=== PATIENT | female | born 1940 | race Caucasian/White ===

== ENCOUNTER → 2019-06-16 | Outpatient (CLI) | payer MEDICARE, OTHER ==
--- NOTE | 2019-06-16 11:25 | Diagnostic Imaging Report ---
INDICATION: Preop for spinal cord stimulator placement. TIME OF EXAM: 11:05 AM No prior studies are available for comparison. FINDINGS: The heart size is normal. The pulmonary vascularity is unremarkable. The lungs are clear. No infiltrate, effusion or pneumothorax is detected. IMPRESSION: No acute cardiopulmonary process is detected. Dictated by: Dictated on workstation # [id number]
[2019-06-16 12:03] LABS: CLARITY,URINE SL CLOUDY; COLOR,URINE DARK YELLOW
[2019-06-16 12:04] LABS: BACTERIA,URINE FEW /HPF; BILIRUBIN,URINE 1+ (NEGATIVE); GLUCOSE, URINE (UA) NEGATIVE (NEGATIVE); KETONES,URINE NEGATIVE (NEGATIVE); LEUKOCYTE ESTERASE ,URINE NEGATIVE (NEGATIVE); NITRITE,URINE NEGATIVE (NEGATIVE); PH,URINE 5.5 (5-9); PROTEIN,URINE 1+ (NEGATIVE); UROBILINOGEN,URINE 0.2 MG/DL (NORMAL)
[2019-06-16 12:05] LABS: AMORPHOUS SEDIMENT,UR FEW AMOR URATES /LPF; HYALINE CASTS, URINE >50 /LPF; SQUAMOUS EPITHELIAL CELL,UR 25-50 /HPF
[2019-06-16 12:06] LABS: CALCIUM OXALATE CRYSTALS,UR MODERATE /LPF
[2019-06-17 09:32] LABS: PROTHROMBIN TIME PATIENT 13.1 SEC (12.2-14.7)
== END ==
LOC: RAD FS 10:47
DX: Z01.818 Encounter for other preprocedural examination (principal); Z01.83 Encounter for blood typing; M79.609 Pain in unspecified limb; R53.83 Other fatigue; Z22.322 Carrier or suspected carrier of Methicillin resistant Staphylococcus aureus
CPT/HCPCS: 36415; 71046; 81000; 85610; 87077; 87081; 87088

== ENCOUNTER → 2019-08-04 | Outpatient (CLI) | payer MEDICARE, OTHER ==
--- NOTE | 2019-08-04 13:47 | Diagnostic Imaging Report ---
INDICATION: Pain status post fall. COMPARISON: None. FINDINGS: Frontal and lateral radiographic views of the lumbar spine were obtained. Evaluation of static alignment demonstrates mild grade 1 anterolisthesis at L4-L5. There is also mild dextroscoliotic deformity epicentered at L3. There is no evidence of jumped facets. Vertebral body heights are maintained. There is no evidence of acute fracture. There are moderate multilevel degenerative changes consistent with intervertebral disc height loss with endplate sclerosis as well as anterior and posterior disc osteophyte complex formations and multilevel facet arthropathy. IMPRESSION: 1. No acute fracture or dislocation in lumbar spine. 2. Moderate multilevel degenerative changes. Dictated by: Dictated on workstation # [id number]
--- NOTE | 2019-08-04 13:48 | Diagnostic Imaging Report ---
INDICATION: Rib pain status post fall. COMPARISON: None. FINDINGS: Four views of the left ribs were obtained. There is no fracture, dislocation, or other acute bony abnormality identified. Visualized portions of the left lung are clear. The surrounding soft tissues appear unremarkable. No radiopaque foreign bodies are seen. IMPRESSION: No healing or displaced left-sided rib fractures. Dictated by: Dictated on workstation # [id number]
--- NOTE | 2019-08-04 14:30 | Diagnostic Imaging Report ---
EXAMINATION: Thoracic spine at 11:58 a.m. INDICATION: Back pain. TECHNIQUE: AP, lateral, and swimmer's views were obtained. COMPARISON: There are no prior studies available for comparison. FINDINGS: The lateral view shows the vertebral body heights and alignment to be generally within normal limits. There is generalized narrowing of the disc spaces at every level. There is no fracture or acute bony abnormality appreciated. There is no sign of a paraspinal mass. IMPRESSION: 1. There is no evidence for an acute bony abnormality. 2. If clinical concern regarding an underlying abnormality persists, then MRI would be recommended for further evaluation. Dictated by: Dictated on workstation # [id number]
== END ==
LOC: RAD FS 11:24
PROVIDERS: ATTEND Nurse Practitioner
DX: M47.816 Spondylosis without myelopathy or radiculopathy, lumbar region (principal); R07.81 Pleurodynia; R29.6 Repeated falls
CPT/HCPCS: 71100; 72072; 72100

== ENCOUNTER 2019-10-27 12:04 | Emergency (ER) | payer MEDICARE, OTHER ==
[~2019-10-27] VITALS: Ht 162 cm; Wt 97.0 kg
--- NOTE | 2019-10-27 12:40 | ED Syncope ---
General Chief Complaint: General Problems/Pain Stated Complaint: SYNCOPE Nursing Triage Note: PT REPORTS SHE FELT LIKE SHE GOING TO PASS OUT AT HOME. DENIES BEING DIZZY. History of Present Illness Date Seen by Provider: Oct 27, 2019 Time Seen by Provider: 12:20 Initial Comments Patient is here with a near syncope episode at home evidently ate breakfast was doing her normal things became more and more dizzy at morning when on and not as much dizzy as lightheaded and unsteady called her daughter who came over for was afraid she cannot get in the car called EMS push the button of brought her in. Denies any chest pain shortness of breath fever chills body aches has been feeling worse over the last couple weeks has not noted anything more ominous or significant. Timing/Prior Episodes: No Prior History, Single Episode Today Symptoms Prior to Episode: Blurred Vision, Lightheadedness, Nausea Precipitating Factors: None Current Symptoms: Lightheadedness, Nausea, Weakness Allergies and Home Medications Allergies Coded Allergies: ropinirole (Verified Adverse Reaction, Unknown, Weakness, 10/27/19) Patient Home Medication List Home Medication List Reviewed: Yes Review of Systems Constitutional: No chills, No fever, No malaise; weakness EENTM: blurred vision; No eye pain, No throat pain Respiratory: No cough, No short of breath, No wheezing Cardiovascular: No chest pain, No palpitations Gastrointestinal: No abdominal pain; nausea; No vomiting Genitourinary: No dysuria, No frequency Musculoskeletal: No joint pain, No muscle pain Skin: No dryness, No rash Psychiatric/Neurological: Headache; Denies Numbness, Denies Paresthesia; Weakness Past Osymqfo-Sknwjd-Ovtnmg Hx Past Med/Social Hx: Reviewed Nursing Past Med/Soc Hx Patient Social History Alcohol Use: Denies Use Recreational Drug Use: No Smoking Status: Never a Smoker 2nd Hand Smoke Exposure: No Recent Foreign Travel: No Contact w/Someone Who Travel: No Recent Infectious Disease Expo: No Recent Hopitalizations: No Physical Abuse: No Sexual Abuse: No Mistreated: No Fear: No Seasonal Allergies Seasonal Allergies: No Past Medical History Surgeries: Yes Hysterectomy, Orthopedic, Tonsillectomy Respiratory: No Cardiac: Yes Hypertension, Irregular Heartbeat, Peripheral Vascular Neurological: 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 oz. kg; 36.00 BMI Method: General Appearance: WD/WN, Mild Distress HEENT: PERRL/EOMI, TMs Normal, Normal ENT Inspection, Pharynx Normal Neck: Full Range of Motion, Normal Inspection; No Carotid Bruit Cardiovascular: Regular Rate, Rhythm Respiratory: Chest Non Tender, Lungs Clear, Normal Breath Sounds Gastrointestinal: Normal Bowel Sounds, Non Tender, Soft Extremities: Normal Range of Motion, No Calf Tenderness Neurologic/Psychiatric: Alert, Oriented x3, Normal Mood/Affect Cranial Nerves: Normal Speech, PERRL Motor/Sensory: No Motor Deficit, No Sensory Deficit Skin: Normal Color, Warm/Dry Progress/Results/Core Measures Results/Orders Lab Results Laboratory Tests Test 10/27/19 12:25 10/27/19 13:10 Range/Units White Blood Count 5.6 4.3-11.0 10^3/uL Red Blood Count 5.11 4.35-5.85 10^6/uL Hemoglobin 15.1 11.5-16.0 G/DL Hematocrit 46 35-52 % Mean Corpuscular Volume 90 80-99 FL Mean Corpuscular Hemoglobin 30 25-34 PG Mean Corpuscular Hemoglobin Concent 33 32-36 G/DL Red Cell Distribution Width 14.6 H 10.0-14.5 % Platelet Count 203 130-400 10^3/uL Mean Platelet Volume 10.7 H 7.4-10.4 FL Neutrophils (%) (Auto) 65 42-75 % Lymphocytes (%) (Auto) 25 12-44 % Monocytes (%) (Auto) 7 0-12 % Eosinophils (%) (Auto) 3 0-10 % Basophils (%) (Auto) 1 0-10 % Neutrophils # (Auto) 3.6 1.8-7.8 X 10^3 Lymphocytes # (Auto) 1.4 1.0-4.0 X 10^3 Monocytes # (Auto) 0.4 0.0-1.0 X 10^3 Eosinophils # (Auto) 0.1 0.0-0.3 10^3/uL Basophils # (Auto) 0.0 0.0-0.1 10^3/uL Neutrophils % (Manual) 68 % Lymphocytes % (Manual) 23 % Monocytes % (Manual) 6 % Eosinophils % (Manual) 1 % Basophils % (Manual) 1 % Band Neutrophils 1 % Prothrombin Time 12.5 12.2-14.7 SEC INR Comment 0.9 0.8-1.4 Activated Partial Thromboplast Time 21 L 24-35 SEC Sodium Level 141 135-145 MMOL/L Potassium Level 3.7 3.6-5.0 MMOL/L Chloride Level 100 98-107 MMOL/L Carbon Dioxide Level 26 21-32 MMOL/L Anion Gap 15 H 5-14 MMOL/L Blood Urea Nitrogen 12 7-18 MG/DL Creatinine 0.90 0.60-1.30 MG/DL Estimat Glomerular Filtration Rate > 60 BUN/Creatinine Ratio 13 Glucose Level 152 H 70-105 MG/DL Calcium Level 9.6 8.5-10.1 MG/DL Corrected Calcium 9.5 8.5-10.1 MG/DL Total Bilirubin 0.6 0.1-1.0 MG/DL Aspartate Amino Transf (AST/SGOT) 33 5-34 U/L Alanine Aminotransferase (ALT/SGPT) 23 0-55 U/L Alkaline Phosphatase 95 40-136 U/L Troponin I < 0.30 <0.30 NG/ML Pro-B-Type Natriuretic Peptide 392.6 H <75.0 PG/ML Total Protein 6.6 6.4-8.2 GM/DL Albumin 4.1 3.2-4.5 GM/DL Urine Color PALE YELLOW Urine Clarity CLEAR Urine pH 7.5 5-9 Urine Specific [place] 1.020 1.016-1.022 Urine Protein NEGATIVE NEGATIVE Urine Glucose (UA) NEGATIVE NEGATIVE Urine Ketones NEGATIVE NEGATIVE Urine Nitrite NEGATIVE NEGATIVE Urine Bilirubin NEGATIVE NEGATIVE Urine Urobilinogen 0.2 < = 1.0 MG/DL Urine Leukocyte Esterase NEGATIVE NEGATIVE Urine RBC (Auto) NEGATIVE NEGATIVE Urine RBC NONE /HPF Urine WBC 0-2 /HPF Urine Squamous Epithelial Cells 2-5 /HPF Urine Renal Epithelial Cells /HPF Urine Crystals PRESENT H /LPF Urine Amorphous Sediment FEW PHILLIP PHOSPHATE H /LPF Urine Bacteria FEW H /HPF Urine Casts PRESENT /LPF Urine Hyaline Casts 0-2 H /LPF Urine Mucus SMALL H /LPF Urine Culture Indicated NO My Orders Orders - CELIO COHEN JR, MD Cbc And Manual Diff (10/27/19 12:32) Comprehensive Metabolic Panel (10/27/19 12:32) Troponin I Fs (10/27/19 12:32) Probnp Fs (10/27/19 12:32) Protime With Inr (10/27/19 12:32) Partial Thromboplastin Time (10/27/19 12:32) Ekg Tracing (10/27/19 12:32) Ua Culture If Indicated (10/27/19 12:32) Ct Head Wo (10/27/19 12:32) Ns Iv 1000 Ml (Sodium Chloride 0.9%) (10/27/19 13:15) Meclizine Tablet (Antivert Tablet) (10/27/19 14:00) Ketorolac Injection (Toradol Injection) (10/27/19 14:15) Medications Given in ED Current Medications Medications Dose Ordered Sig/Silvia Route Start Time Stop Time Status Last Admin Dose Admin Ketorolac Tromethamine 15 mg ONCE ONCE IVP 10/27/19 14:15 10/27/19 14:16 DC 10/27/19 14:14 15 MG Meclizine HCl 25 mg ONCE ONCE PO 10/27/19 14:00 10/27/19 14:01 DC 10/27/19 13:54 25 MG Vital Signs/I&O 10/27/19 10/27/19 12:11 13:25 Temp 36.3 Pulse 78 80 85 82 Resp 18 B/P (MAP) 138/71 (93) 155/117 (130) 147/74 (98) 137/73 (94) O2 Delivery Room Air Blood Pressure Mean: 93 Progress Progress Note : Time: 15:15 Progress Note Lab work CT EKG all normal level of behavior seems histrionic but did get her up but was unable to move and ambulate with any assuredness can use a bedside commode but difficult to and from that commode a lot of overlay here other than physical. Discussed with Dr. Avelar she would recommend sending her to [facility] under behavioral health diagnosis with the chance to observe her medically for a little while longer as well as consider placement for snf. Initial ECG Impression Date: Oct 27, 2019 Initial ECG Impression Time: 12:42 Initial ECG Rate: 68 Initial ECG Rhythm: Normal Sinus Initial ECG Intervals: Normal Initial ECG Impression: Normal Departure Communication (Admissions) Time/Spoke to Admitting Phy: 15:[address] Avelar regarding admission for behavioral health as well as further physical evaluation with output expected to be some sort of a skilled facility. Impression Primary Impression: Fatigue Qualified Codes: R53.83 - Other fatigue Additional Impression: Need for extended care facility Disposition: 02 XFER SHT-TRM HOSP Condition: Stable Admissions Decision to Admit Reason: Admit from ER (General) Decision to Admit/Date: Oct 27, 2019 Time/Decision to Admit Time: 15:19 Transfer Transfer Reason: Exceeds level of care Method of Transfer: EMS Departure-Patient Inst. Referrals: CHUN NATARAJAN MD (PCP/Family) Primary Care Physician CELIO COHEN JR, MD Oct 27, 2019 12:40
[2019-10-27 12:42] LABS: HEMATOCRIT 46 % (35-52); HEMOGLOBIN 15.1 G/DL (11.5-16.0); MEAN CORPUSCULAR HEMOGLOBIN 30 PG (25-34); MEAN CORPUSCULAR HGB CONC 33 G/DL (32-36); MEAN CORPUSCULAR VOLUME 90 FL (80-99); MEAN PLATELET VOLUME 10.7 FL (7.4-10.4); PLATELET COUNT 203 10^3/uL (130-400); RED CELL DISTRIBUTION WIDTH 14.6 % (10.0-14.5); WHITE BLOOD COUNT 5.6 10^3/uL (4.3-11.0)
[2019-10-27 12:43] LABS: BASOPHILS % (AUTO) 1 % (0-10); EOSINOPHILS # (AUTO) 0.1 10^3/uL (0.0-0.3); EOSINOPHILS % (AUTO) 3 % (0-10); LYMPHOCYTES # (AUTO) 1.4 X 10^3 (1.0-4.0); LYMPHOCYTES % (AUTO) 25 % (12-44); MONOCYTES # (AUTO) 0.4 X 10^3 (0.0-1.0); MONOCYTES % (AUTO) 7 % (0-12); NEUTROPHILS # (AUTO) 3.6 X 10^3 (1.8-7.8); NEUTROPHILS % (AUTO) 65 % (42-75)
[2019-10-27 12:50] LABS: INR 0.9 (0.8-1.4); PROTHROMBIN TIME PATIENT 12.5 SEC (12.2-14.7)
[2019-10-27 12:56] LABS: BAND NEUTROPHILS 1 %; BASOPHILS % (MANUAL) 1 %; EOSINOPHILS % (MANUAL) 1 %; LYMPHOCYTES % (MANUAL) 23 %; MONOCYTES % (MANUAL) 6 %; NEUTROPHILS % (MANUAL) 68 %
[2019-10-27 13:06] LABS: CHLORIDE 100 MMOL/L (98-107); POTASSIUM 3.7 MMOL/L (3.6-5.0); SODIUM 141 MMOL/L (135-145)
[2019-10-27 13:07] LABS: ALANINE AMINOTRANSFERASE 23 U/L (0-55); BILIRUBIN,TOTAL 0.6 MG/DL (0.1-1.0); BUN/CREATININE RATIO 13; CALCIUM 9.6 MG/DL (8.5-10.1); CARBON DIOXIDE 26 MMOL/L (21-32); GFR ESTIMATED > 60; GLUCOSE 152 MG/DL (70-105); TOTAL PROTEIN 6.6 GM/DL (6.4-8.2)
[2019-10-27 13:08] LABS: ALBUMIN 4.1 GM/DL (3.2-4.5); ALKALINE PHOSPHATASE 95 U/L (40-136)
--- NOTE | 2019-10-27 13:11 | Diagnostic Imaging Report ---
INDICATION: Weakness and presyncope Noncontrast brain CT is performed. There is no prior study for comparison. TECHNIQUE: Multiple contiguous axial images were obtained through the brain without the use of intravenous contrast. Auto Exposure Controls were utilized during the CT exam to meet ALARA standards for radiation dose reduction. There were no extra-axial fluid collections. No intracranial hemorrhage. No intracranial mass or mass effect. No midline shift. There are mild low-density changes in the deep white matter compatible with mild chronic ischemic change. There is no acute appearing abnormality. Ventricles are normal in size and position. Calvarial windows appear unremarkable. IMPRESSION: Minimal chronic changes with no acute intracranial abnormality. Dictated by: Dictated on workstation # [id number]
[2019-10-27] MEDS ORDERED: NS IV 1000 ML 1,000 ML IV SCH (13:15)
[2019-10-27 13:25] VITALS: BP_SYST 137; BP_SYST 147; BP_SYST 155; BP_DIAS 117; BP_DIAS 73; BP_DIAS 74
[2019-10-27 13:38] LABS: BACTERIA,URINE FEW /HPF; BILIRUBIN,URINE NEGATIVE (NEGATIVE); CLARITY,URINE CLEAR; COLOR,URINE PALE YELLOW; GLUCOSE, URINE (UA) NEGATIVE (NEGATIVE); KETONES,URINE NEGATIVE (NEGATIVE); LEUKOCYTE ESTERASE ,URINE NEGATIVE (NEGATIVE); NITRITE,URINE NEGATIVE (NEGATIVE); PH,URINE 7.5 (5-9); PROTEIN,URINE NEGATIVE (NEGATIVE); WBC,URINE 0-2 /HPF
[2019-10-27 13:39] LABS: AMORPHOUS SEDIMENT,UR FEW AMOR PHOSPHATE /LPF; HYALINE CASTS, URINE 0-2 /LPF
[2019-10-27] MEDS ORDERED: MECLIZINE 25 MG (ANTIVERT) TAB PO ONE (14:00)
[2019-10-27] MEDS ORDERED: KETOROLAC 30 MG/ML VIAL IVP ONE (14:15)
[2019-10-27 16:20] VITALS: BP 138/72
== END 2019-10-27 16:25 | disposition short-term general hospital (02) ==
LOC: EDUNIT# 12:04 → ER FS 12:05
DX: R53.83 Other fatigue (principal); I10 Essential (primary) hypertension; E05.90 Thyrotoxicosis, unspecified without thyrotoxic crisis or storm; Z75.1 Person awaiting admission to adequate facility elsewhere; Z88.8 Allergy status to other drugs, medicaments and biological substances; Z90.710 Acquired absence of both cervix and uterus; Z90.89 Acquired absence of other organs
CPT/HCPCS: 36415; 70450; 80053; 81000; 83880; 84484; 85007; 85027; 85610; 85730; 93005; 96374

== ENCOUNTER → 2019-11-01 | Outpatient (CLI) | payer MEDICARE, OTHER ==
--- NOTE | 2019-11-01 13:05 | Diagnostic Imaging Report ---
INDICATION: Postmenopausal state, screening for osteoporosis. COMPARISON: None available. FINDINGS: AP Spine L1-L4: [BMD (g/cm2): 1.540] [T-Score: 2.8] [Z-Score: 3.7] [BMD Previous: NA] [BMD % Change: NA] LT Hip Neck: [BMD (g/cm2): 0.919] [T-Score: -0.9] [Z-Score: 0.5] LT Hip Total: [BMD (g/cm2):10.67] [T-Score:0.5] [Z-Score: 1.6] [BMD Previous: NA] [BMD % Change: NA] RT Hip Neck: [BMD (g/cm2):0.939] [T-Score:-0.7] [Z-Score:0.7] RT Hip Total: [BMD (g/cm2):1.048] [T-score:0.3] [Z-Score:1.5] [BMD Previous:NA] [BMD % Change:NA] *Indicates significant change from prior examination based on 95% confidence level. World Health Organization criteria for BMD interpretation classify patients as Normal (T-score at or above -1.0), Osteopenic (T-score between -1.0 and -2.5) or Osteoporotic (T-score at or below -2.5). LIMITATIONS AND MODIFICATION: None. IMPRESSION: 1. Normal bone mineral density. 2. Baseline examination. 3. See below National Osteoporosis Foundation guidelines on when to potentially initiate pharmacologic therapy. Based on the National Osteoporosis Foundation Guidelines, pharmacologic treatment should be initiated in any of the following, unless clinical conditions suggest otherwise: * Any patient with prior fragility fracture of the hip or vertebrae. A spine fracture indicates 5X risk for subsequent spine fracture and 2X risk for subsequent hip fracture. * Osteoporosis (T-score <-2.5). * Postmenopausal women and men age 50 and older with low bone mass/osteopenia (T-score between -1.0 and -2.5) by DXA and 10-year major osteoporotic fracture greater than 20% or a 10-year probability of hip fracture greater than 3%. These fracture risks are supplied above in the FRAX score, if applicable. * Clinician judgement and/or patient preferences may indicate treatment for people with 10-year fracture probabilities above or below these levels. Dictated by: Dictated on workstation # [id number]
== END ==
LOC: RAD 09:49
PROVIDERS: ATTEND Nurse Practitioner
DX: Z13.820 Encounter for screening for osteoporosis (principal); M54.9 Dorsalgia, unspecified; R29.6 Repeated falls; M19.90 Unspecified osteoarthritis, unspecified site
CPT/HCPCS: 77080

== ENCOUNTER 2020-04-23 12:15 | Emergency (ER) | payer MEDICARE, OTHER ==
[~2020-04-23] VITALS: Ht 167.7 cm; Wt 89.4 kg
[2020-04-23 12:38] LABS: WHITE BLOOD COUNT 8.3 10^3/uL (4.3-11.0)
[2020-04-23 12:39] LABS: BASOPHILS % (AUTO) 0 % (0-10); EOSINOPHILS # (AUTO) 0.2 10^3/uL (0.0-0.3); EOSINOPHILS % (AUTO) 2 % (0-10); HEMATOCRIT 45 % (35-52); HEMOGLOBIN 14.7 G/DL (11.5-16.0); LYMPHOCYTES % (AUTO) 24 % (12-44); MEAN CORPUSCULAR HEMOGLOBIN 29 PG (25-34); MEAN CORPUSCULAR HGB CONC 33 G/DL (32-36); MEAN CORPUSCULAR VOLUME 89 FL (80-99); MONOCYTES # (AUTO) 0.5 X 10^3 (0.0-1.0); MONOCYTES % (AUTO) 7 % (0-12); NEUTROPHILS # (AUTO) 5.5 X 10^3 (1.8-7.8); NEUTROPHILS % (AUTO) 66 % (42-75); PLATELET COUNT 247 10^3/uL (130-400); RED CELL DISTRIBUTION WIDTH 13.6 % (10.0-14.5)
[2020-04-23 12:55] LABS: ALKALINE PHOSPHATASE 106 U/L (40-136); BILIRUBIN,TOTAL 0.6 MG/DL (0.1-1.0); BUN/CREATININE RATIO 20; CALCIUM 9.1 MG/DL (8.5-10.1); CARBON DIOXIDE 24 MMOL/L (21-32); CHLORIDE 100 MMOL/L (98-107); CREATININE SERUM 0.96 MG/DL (0.60-1.30); GFR ESTIMATED 56; GLUCOSE 132 MG/DL (70-105); POTASSIUM 3.6 MMOL/L (3.6-5.0); SODIUM 139 MMOL/L (135-145)
[2020-04-23 12:56] LABS: ALANINE AMINOTRANSFERASE 18 U/L (0-55); ALBUMIN 4.1 GM/DL (3.2-4.5); TOTAL PROTEIN 6.5 GM/DL (6.4-8.2)
--- NOTE | 2020-04-23 13:27 | ED Cardiac General ---
History of Present Illness General Chief Complaint: Chest Pain Stated Complaint: CHEST PAIN; FEET NUMBNESS Nursing Triage Note: Patient reports she woke this morning feeling well, states she stepped outside to water her avila, tripped and fell, landing on her left knee. She states she crawled back into the house, then sat on the cough and called her neighbor. She states she then began having chest pain and cramping and numbness in her legs bilaterally. Patient's daughter reported to EMS that patient has had issues with low potassium in the past. Source: patient Exam Limitations: no limitations History of Present Illness Date Seen by Provider: Apr 23, 2020 Time Seen by Provider: 13:00 Initial Comments Patient is a 79-year-old female who presents with multiple medical complaints. Patient states she tripped while walking outdoors and fell landing on her left knee. Patient did not hear headedness She reports left anterior knee pain. Patient states she had a crawl to get back into the house and then started to cough and developed chest pain on route to the ambulance. Reports cramping in both legs. Denies fever chills, nausea vomiting and sweats. No sore throat, dizziness headache. No other acute symptoms or complaints. 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: Yes Allergies and Home Medications Allergies Coded Allergies: ropinirole (Verified Adverse Reaction, Unknown, Weakness, 10/27/19) Home Medications Hydrocodone/Acetaminophen 1 Each Tablet, 1 TAB PO Q4H Prescribed by: MARK ALSTON on 04/23/201556 Prochlorperazine Maleate 10 Mg Tablet, 10 MG PO Q12H Prescribed by: MARK ALSTON on 04/23/201556 Tamsulosin HCl 0.4 Mg Cap, 0.4 MG PO DAILY Prescribed by: MARK ALSTON on 04/23/201556 Patient Home Medication List Home Medication List Reviewed: Yes Review of Systems Review of Systems Constitutional: see HPI EENTM: See HPI Respiratory: See HPI Cardiovascular: See HPI Gastrointestinal: See HPI Genitourinary: See HPI Musculoskeletal: see HPI Skin: see HPI Psychiatric/Neurological: See HPI Endocrine: See HPI Past Tfzbqwn-Bbxgez-Bjmrhi Hx Past Med/Social Hx: Reviewed Nursing Past Med/Soc Hx Patient Social History Alcohol Use: Denies Use Recreational Drug Use: No Smoking Status: Never a Smoker 2nd Hand Smoke Exposure: No Recent Foreign Travel: No Contact w/Someone Who Travel: No Recent Infectious Disease Expo: No Recent Hopitalizations: No Physical Abuse: No Sexual Abuse: No Mistreated: No Fear: No Seasonal Allergies Seasonal Allergies: No Past Medical History Surgeries: Yes (RT ULNAR NERVE OF ELBOW, CARPAL TUNNEL RIGHT, BACK SX, CYSTOCELE, ) Adenoidectomy, Hysterectomy, Orthopedic, Tonsillectomy Respiratory: No Cardiac: Yes Hypertension, Irregular Heartbeat, Peripheral Vascular 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 oz. kg; 31.00 BMI Method: General Appearance: No Apparent Distress, Anxious HEENT: PERRL/EOMI, Normal ENT Inspection, Pharynx Normal Neck: Full Range of Motion, Non Tender, Supple Respiratory: Chest Non Tender, Lungs Clear Cardiovascular: Regular Rate, Rhythm Gastrointestinal: Soft Extremity: Other (left knee pain, swelling) Neurologic/Psychiatric: Alert, Oriented x3, No Motor/Sensory Deficits, Normal Mood/Affect Focused Exam Sepsis Stage: Ruled Out Progress/Results/Core Measures Results/Orders Lab Results Laboratory Tests Test 04/23/20 12:32 04/23/20 14:55 Range/Units White Blood Count 8.3 4.3-11.0 10^3/uL Red Blood Count 5.00 4.35-5.85 10^6/uL Hemoglobin 14.7 11.5-16.0 G/DL Hematocrit 45 35-52 % Mean Corpuscular Volume 89 80-99 FL Mean Corpuscular Hemoglobin 29 25-34 PG Mean Corpuscular Hemoglobin Concent 33 32-36 G/DL Red Cell Distribution Width 13.6 10.0-14.5 % Platelet Count 247 130-400 10^3/uL Mean Platelet Volume 10.0 7.4-10.4 FL Neutrophils (%) (Auto) 66 42-75 % Lymphocytes (%) (Auto) 24 12-44 % Monocytes (%) (Auto) 7 0-12 % Eosinophils (%) (Auto) 2 0-10 % Basophils (%) (Auto) 0 0-10 % Neutrophils # (Auto) 5.5 1.8-7.8 X 10^3 Lymphocytes # (Auto) 2.0 1.0-4.0 X 10^3 Monocytes # (Auto) 0.5 0.0-1.0 X 10^3 Eosinophils # (Auto) 0.2 0.0-0.3 10^3/uL Basophils # (Auto) 0.0 0.0-0.1 10^3/uL D-Dimer 1.79 H 0.00-0.49 UG/ML Sodium Level 139 135-145 MMOL/L Potassium Level 3.6 3.6-5.0 MMOL/L Chloride Level 100 98-107 MMOL/L Carbon Dioxide Level 24 21-32 MMOL/L Anion Gap 15 H 5-14 MMOL/L Blood Urea Nitrogen 19 H 7-18 MG/DL Creatinine 0.96 0.60-1.30 MG/DL Estimat Glomerular Filtration Rate 56 BUN/Creatinine Ratio 20 Glucose Level 132 H 70-105 MG/DL Calcium Level 9.1 8.5-10.1 MG/DL Corrected Calcium 9.0 8.5-10.1 MG/DL Total Bilirubin 0.6 0.1-1.0 MG/DL Aspartate Amino Transf (AST/SGOT) 27 5-34 U/L Alanine Aminotransferase (ALT/SGPT) 18 0-55 U/L Alkaline Phosphatase 106 40-136 U/L Troponin I < 0.30 <0.30 NG/ML Pro-B-Type Natriuretic Peptide 542.2 H <75.0 PG/ML Total Protein 6.5 6.4-8.2 GM/DL Albumin 4.1 3.2-4.5 GM/DL Urine Color YELLOW Urine Clarity CLEAR Urine pH 8.5 5-9 Urine Specific [place] 1.010 L 1.016-1.022 Urine Protein NEGATIVE NEGATIVE Urine Glucose (UA) NEGATIVE NEGATIVE Urine Ketones NEGATIVE NEGATIVE Urine Nitrite NEGATIVE NEGATIVE Urine Bilirubin NEGATIVE NEGATIVE Urine Urobilinogen 0.2 < = 1.0 MG/DL Urine Leukocyte Esterase NEGATIVE NEGATIVE Urine RBC (Auto) NEGATIVE NEGATIVE Urine RBC NONE /HPF Urine WBC NONE /HPF Urine Squamous Epithelial Cells 0-2 /HPF Urine Crystals NONE /LPF Urine Bacteria NEGATIVE /HPF Urine Casts NONE /LPF Urine Mucus NEGATIVE /LPF Urine Culture Indicated NO My Orders Orders - MARK ALSTON DO Cbc With Automated Diff (04/23/20 12:33) Comprehensive Metabolic Panel (04/23/20 12:33) Ua Culture If Indicated (04/23/20 12:33) Troponin I Fs (04/23/20 12:33) Ekg Tracing (04/23/20 12:33) Probnp Fs (04/23/20 12:33) Chest 1 View Ap/Pa Only (04/23/20 13:21) Knee 3 View Left (04/23/20 13:21) Fibrin Degradation Products (04/23/20 13:21) Ct Angio Chest W (04/23/20 13:56) Ct Extremity Lower Left Wo (04/23/20 13:58) Femur 2 View Left (04/23/20 13:58) Tibia Fibula 2 View Left (04/23/20 13:58) Lorazepam Injection (Ativan Injection) (04/23/20 14:00) Lorazepam Injection (Ativan Injection) (04/23/20 14:15) Iohexol Injection (Omnipaque 350 Mg/Ml 1 (04/23/20 14:15) Received Contrast (Hold Metformin- Contr (04/23/20 14:15) Sodium Chloride Flush (Catheter Flush Sy (04/23/20 14:15) Ns (Ivpb) (Sodium Chloride 0.9% Ivpb Bag (04/23/20 14:15) Ketorolac Injection (Toradol Injection) (04/23/20 15:00) Knee Immobilizer (04/23/20 15:50) Medications Given in ED Current Medications Medications Dose Ordered Sig/Silvia Route Start Time Stop Time Status Last Admin Dose Admin Iohexol 125 ml ONCE ONCE IV 04/23/20 14:15 04/23/20 14:16 DC 04/23/20 14:39 125 ML Ketorolac Tromethamine 30 mg ONCE ONCE IVP 04/23/20 15:00 04/23/20 15:01 DC 04/23/20 15:09 30 MG Lorazepam 1 mg ONCE ONCE IVP 04/23/20 14:00 04/23/20 14:04 DC 04/23/20 15:08 1 MG Sodium Chloride 10 ml NEEDED PRN IV 04/23/20 14:15 04/23/20 14:39 10 ML Sodium Chloride 100 ml ONCE ONCE IV 04/23/20 14:15 04/23/20 14:16 DC 04/23/20 14:39 80 ML Vital Signs/I&O 04/23/20 04/23/20 12:20 12:20 Temp 37.0 Pulse 67 Resp 20 B/P (MAP) 135/71 (92) Pulse Ox 97 O2 Delivery Room Air Nasal Cannula O2 Flow Rate 2.00 Blood Pressure Mean: 92 Departure Communication (Admissions) CTA chest: CT left lower extremity: Chest x-ray: Left femur/left knee/tib-fib: No acute disease per radiology report Mechanical fall with reproducible knee pain with out evidence of fracture or further compromise. Atypical reproducible chest pain with normal EKG and negative cardiac biomarkers. Chest pain resolved with treatment of anxiety. No fractures evidence on imaging studies. Pain improved. Patient able to weight- bear and ambulate with knee immobilizer and walker. Impression Primary Impression: Sprain of left knee Additional Impression: Chest pain Disposition: 01 HOME, SELF-CARE Condition: Stable (ERASED) Departure-Patient Inst. Referrals: SELF,CHUN SINCLAIR (PCP/Family) Primary Care Physician Patient Instructions: Chest Pain, Knee Sprain (DC) Add. Discharge Instructions: Please go home and rest. Wear knee immobilize, use walker and take Tylenol for pain. Follow up with your PCP in 3-5 days for reevaluation. Return to the ED if new or worsening symptoms. All discharge instructions reviewed with patient and/or family. Voiced understanding. Scripts Prochlorperazine Maleate (Compazine) 10 Mg Tablet 10 MG PO Q12H, #10 TAB Prov: MARK ALSTON DO 04/23/20 Hydrocodone/Acetaminophen ([place] 7.5-325 Tablet) 1 Each Tablet 1 TAB PO Q4H for PAIN-MODERATE MDD 6 TABS for 7 Days, #10 TAB Prov: MARK ALSTON DO 7/13/20 Tamsulosin HCl (Flomax) 0.4 Mg Cap 0.4 MG PO DAILY, #10 CAP Prov: MARK ALSTON DO 04/23/20 MARK ALSTON DO Apr 23, 2020 13:27
--- OUTSIDE RECORDS SUMMARY | 2020-04-23 13:40 | XMS REPORT | Continuity of Care Document ---
Author Organization Unknown Address Unknown Phone Unavailable Allergies Active Description Code Type Severity Reaction Onset Reported/Identified Relationship to Patient Clinical Status Yes NO KNOWN DRUG ALLERGIES UNKNOWN UNKNOWN Yes No Known Drug Allergies [id number] Drug Allergy Unknown N/A 10/27/2019 Yes ropinirole [id number] Drug Allerg y Unknown Weakness 10/27/2019 Medications Medication Packaging Start Date St op Date Route Dosage Sig NORMAL SALINE 1000CC IV BAG INJ 0.9 % (NS 1000CC IV BAG) ml 10/27/2019 11/11/2019 CONTINUOUSEVERY 0 Hour DONEPEZIL TAB 10 MG (ARICEPT) Dose(s) 10/27/2019 11/02/2019 QHS&2100 TRAMADOL TAB 50 MG (ULTRAM) MG 10/27/2019 11/06/2019 PRN Q6H LEVOTHYROXINE TAB 50 MCG (SYNTHROID) Dose(s) 10/28/2019 11/26/2019 QAM&0800 AMLODIPINE TAB 5 MG (NORVASC) MG 10/28/2019 11/03/2019 Daily&0900 MELOXICAM TAB 7.5 MG (MOBIC) Dose(s) 10/28/2019 11/03/2019 Daily&0900 POTASSIUM CHLORIDE TAB 20 MEQ (K-DUR) MEQ 10/28/2019 11/26/2019 Daily&0900 DULOXETINE CAP 30 MG (CYMBALTA) Dose(s) 10/28/2019 11/03/2019 Daily&0900 FUROSEMIDE TAB 20 MG (LASIX) Dose(s) 10/28/2019 11/03/2019 Q48H&0900 Problems Date Dx Coded Attending Type Code Diagnosis Diagnosed By 06/20/2019 BON MISHRA MD Ot M79.609 PAIN IN UNSPECIFIED LIMB 06/20/2019 BON MISHRA MD Ot R53.83 OTHER FATIGUE 06/20/2019 BON MISHRA MD Ot Z01.818 ENCOUNTER FOR OTHER PREPROCEDURAL EXAMIN 06/20/2019 TAD MD, EUGERIE A Ot Z01.83 ENCOUNTER FOR BLOOD TYPING 06/20/2019 BON MISHRA MD A Ot 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 06/22/2019 BON MISHRA MD A Ot M79.609 PAIN IN UNSPECIFIED LIMB 06/22/2019 BON MISHRA MD A Ot R53.83 OTHER FATIGUE 06/22/2019 BON MISHRA MD A Ot Z01.818 ENCOUNTER FOR OTHER PREPROCEDURAL EXAMIN 06/22/2019 BON MISHRA MD A Ot Z01.83 ENCOUNTER FOR BLOOD TYPING 06/22/2019 BON MISHRA MD A Ot 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 07/05/2019 BON MISHRA MD A Ot M79.609 PAIN IN UNSPECIFIED LIMB 07/05/2019 BON MISHRA MD A Ot R53.83 OTHER FATIGUE 07/05/2019 BON MISHRA MD A Ot Z01.818 ENCOUNTER FOR OTHER PREPROCEDURAL EXAMIN 07/05/2019 BON MISHRA MD A Ot Z01.83 ENCOUNTER FOR BLOOD TYPING 07/05/2019 BON MISHRA MD A Ot 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 07/05/2019 BON MISHRA MD A Ot M79.609 PAIN IN UNSPECIFIED LIMB 07/05/2019 BON MISHRA MD A Ot R53.83 OTHER FATIGUE 07/05/2019 BON MISHRA MD A Ot Z01.818 ENCOUNTER FOR OTHER PREPROCEDURAL EXAMIN 07/05/2019 BON MISHRA MD A Ot Z01.83 ENCOUNTER FOR BLOOD TYPING 07/05/2019 BON MISHRA MD A Ot 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 07/07/2019 BON MISHRA MD A Ot M79.609 PAIN IN UNSPECIFIED LIMB 07/07/2019 BON MISHRA MD A Ot R53.83 OTHER FATIGUE 07/07/2019 BON MISHRA MD A Ot Z01.818 ENCOUNTER FOR OTHER PREPROCEDURAL EXAMIN 07/07/2019 BON MISHRA MD A Ot Z01.83 ENCOUNTER FOR BLOOD TYPING 07/07/2019 BON MISHRA MD Ot 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 07/27/2019 BON MISHRA MD Ot M79.609 PAIN IN UNSPECIFIED LIMB 07/27/2019 BON MISHRA MD Ot R53.83 OTHER FATIGUE 07/27/2019 BON MISHRA MD Ot Z01.818 ENCOUNTER FOR OTHER PREPROCEDURAL EXAMIN 07/27/2019 BON MISHRA MD Ot Z01.83 ENCOUNTER FOR BLOOD TYPING 07/27/2019 TAD SINCLAIR, BON Joseph Ot 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 08/10/2019 SHONNA AZEVEDO K COMMUNITY OUTREACH SPECIALIST Ot M47.816 SPONDYLOSIS W/O MYELOPATHY OR RADICULOPA 08/10/2019 SHONNA AZEVEDO COMMUNITY OUTREACH SPECIALIST Ot R07.81 PLEURODYNIA 08/10/2019 SHONNA AZEVEDO COMMUNITY OUTREACH SPECIALIST Ot R29.6 REPEATED FALLS 08/10/2019 SHONNA AZEVEDO COMMUNITY OUTREACH SPECIALIST Ot R29.6 REPEATED FALLS 08/10/2019 JOLLYSHONNA COMMUNITY OUTREACH SPECIALIST Ot R29.6 REPEATED FALLS 08/11/2019 JOLLYSHONNA COMMUNITY OUTREACH SPECIALIST Ot M81.0 AGE-RELATED OSTEOPOROSIS W/O CURRENT PAT 08/11/2019 SHONNA AZEVEDO K COMMUNITY OUTREACH SPECIALIST Ot M47.816 SPONDYLOSIS W/O MYELOPATHY OR RADICULOPA 08/11/2019 SHONNA AZEVEDO K COMMUNITY OUTREACH SPECIALIST Ot R07.81 PLEURODYNIA 08/11/2019 SHONAN AZEVEDO COMMUNITY OUTREACH SPECIALIST Ot R29.6 REPEATED FALLS 08/11/2019 SHONNA AZEVEDO K COMMUNITY OUTREACH SPECIALIST Ot M47.816 SPONDYLOSIS W/O MYELOPATHY OR RADICULOPA 08/11/2019 JOLLYLUZSHONNA K COMMUNITY OUTREACH SPECIALIST Ot R07.81 PLEURODYNIA 08/11/2019 SHONNA AZEVEDO COMMUNITY OUTREACH SPECIALIST Ot R29.6 REPEATED FALLS 08/11/2019 JOLLYSHONNA K COMMUNITY OUTREACH SPECIALIST Ot M81.0 AGE-RELATED OSTEOPOROSIS W/O CURRENT PAT 08/16/2019 BON MISHRA MD Ot M79.609 PAIN IN UNSPECIFIED LIMB 08/16/2019 BON MISHRA MD Ot R53.83 OTHER FATIGUE 08/16/2019 BON MISHRA MD Ot Z01.818 ENCOUNTER FOR OTHER PREPROCEDURAL EXAMIN 08/16/2019 BON MISHRA MD Ot Z01.83 ENCOUNTER FOR BLOOD TYPING 08/16/2019 BON MISHRA MD Ot 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 08/26/2019 SHONNA AZEVEDO APRN Ot M81.0 AGE-RELATED OSTEOPOROSIS W/O CURRENT PAT 08/29/2019 SHONNA AZEVEDO APRN Ot M47.816 SPONDYLOSIS W/O MYELOPATHY OR RADICULOPA 08/29/2019 SHONNA AZEVEDO APRN Ot R07.81 PLEURODYNIA 08/29/2019 SHONNA AZEVEDO APRN Ot R29.6 REPEATED FALLS 10/27/2019 NOEL SINCLAIR, CELIO Eason Ot E05.90 THYROTOXICOSIS, UNSP WITHOUT THYROTOXIC 10/27/2019 CELIO COHEN MD Ot I1 0 ESSENTIAL (PRIMARY) HYPERTENSION 10/27/2019 CELIO COHEN MD Ot R53.83 OTHER FATIGUE 10/27/2019 CELIO COHEN MD Ot R5 5 SYNCOPE AND COLLAPSE 10/27/2019 CELIO COHEN MD Ot Z75.1 PERSON AWAITING ADMISSION TO [facility] 10/27/2019 CELIO COHEN MD Ot Z88.8 ALLERGY STATUS TO OT DRUG/MEDS/BIOL SUB 10/27/2019 CELIO COHEN MD Ot Z90.710 ACQUIRED ABSENCE OF BOTH CERVIX AND UTER 10/27/2019 CELIO COHEN MD Ot Z90.89 ACQUIRED ABSENCE OF OTHER ORGANS 10/28/2019 Mable Avelar W 244.9 UNSPECIFIED HYPOTHYROIDISM 10/28/2019 Mable Avelar W 276.8 HYPOPOTASSEMIA 10/28/2019 Mable Avelar W 290.0 SENILE DEMENTIA, UNCOMPLICATED 10/28/2019 Mable Avelar W 296.20 MAJOR DEPRESSIVE DISORDER, SINGLE EPISODE, UNSPECIFIED DEGREE 10/28/2019 Mable Avelar W 401.0 MALIGNANT ESSENTIAL HYPERTENSION 10/28/2019 Mable Avelar W 427.9 CARDIAC DYSRHYTHMIA, UNSPECIFIED 10/28/2019 Mable Avelar W 443.9 PERIPHERAL VASCULAR DISEASE, UNSPECIFIED 10/28/2019 Mable Avelar W 780.79 OTHER MALAISE AND FATIGUE 10/28/2019 Avelar, Mable W 781.99 OTHER SYMPTOMS INVOLVING NERVOUS AND MUSCULOSKELETAL SYSTEMS 10/28/2019 Mable Avelar W E03.9 HYPOTHYROIDISM, UNSPECIFIED 10/28/2019 Mable Avelar W E87.6 HYPOKALEMIA 10/28/2019 Mable Avelar W F03.90 UNSPECIFIED DEMENTIA WITHOUT BEHAVIORAL DISTURBANCE 10/28/2019 Mable Avelar W F32.9 MAJOR DEPRESSIVE DISORDER, SINGLE EPISODE, UNSPECIFIED 10/28/2019 Mable Avelar W I10 ESSENTIAL (PRIMARY) HYPERTENSION 10/28/2019 Mable Avelar W I49.9 CARDIAC ARRHYTHMIA, UNSPECIFIED 10/28/2019 Mable Avelar W I73.9 PERIPHERAL VASCULAR DISEASE, UNSPECIFIED 10/28/2019 Mable Avelar W R29.818 OTHER SYMPTOMS AND SIGNS INVOLVING THE NERVOUS SYSTEM 10/28/2019 Mable Avelar W R53.1 WEAKNESS 10/31/2019 CELIO COHEN MD Ot E05.90 THYROTOXICOSIS, UNSP WITHOUT THYROTOXIC 10/31/2019 CELIO COHEN MD Ot I1 0 ESSENTIAL (PRIMARY) HYPERTENSION 10/31/2019 CELIO COHEN MD Ot R53.83 OTHER FATIGUE 10/31/2019 CELIO COHEN MD Ot R5 5 SYNCOPE AND COLLAPSE 10/31/2019 CELIO COHEN MD Ot Z75.1 PERSON AWAITING ADMISSION TO [facility] 10/31/2019 CELIO COHEN MD Ot Z88.8 ALLERGY STATUS TO OTH DRUG/MEDS/BIOL SUB 10/31/2019 CELIO COHEN MD Ot Z90.710 ACQUIRED ABSENCE OF BOTH CERVIX AND UTER 10/31/2019 CELIO COHEN MD Ot Z90.89 ACQUIRED ABSENCE OF OTHER ORGANS 11/02/2019 CELIO COHEN MD Ot E05.90 THYROTOXICOSIS, UNSP WITHOUT THYROTOXIC 11/02/2019 CELIO COHEN MD Ot I1 0 ESSENTIAL (PRIMARY) HYPERTENSION 11/02/2019 CELIO COHEN MD Ot R53.83 OTHER FATIGUE 11/02/2019 CELIO COHEN MD Ot R5 5 SYNCOPE AND COLLAPSE 11/02/2019 CELIO COHEN MD Ot Z75.1 PERSON AWAITING ADMISSION TO [facility] 11/02/2019 CELIO COHEN MD Ot Z88.8 ALLERGY STATUS TO OTH DRUG/MEDS/BIOL SUB 11/02/2019 CELIO COHEN MD Ot Z90.710 ACQUIRED ABSENCE OF BOTH CERVIX AND UTER 11/02/2019 NOEL SINCLAIR, CELIO Eason Ot Z90.89 ACQUIRED ABSENCE OF OTHER ORGANS 11/03/2019 JOLLY, SHONNA Kiser COMMUNITY OUTREACH SPECIALIST Ot M19.90 UNSPECIFIED OSTEOARTHRITIS, UNSPECIFIED 11/03/2019 JOLLY, SHONNA Kiser COMMUNITY OUTREACH SPECIALIST Ot M54.9 DORSALGIA, UNSPECIFIED 11/03/2019 JOLLY, SHONNA Margi COMMUNITY OUTREACH SPECIALIST Ot R29.6 REPEATED FALLS 11/03/2019 JOLLY, SHONNA Margi COMMUNITY OUTREACH SPECIALIST Ot Z13.820 ENCOUNTER FOR SCREENING FOR OSTEOPOROSIS 11/03/2019 JOLLY, SHONNA Kiser COMMUNITY OUTREACH SPECIALIST Ot M19.90 UNSPECIFIED OSTEOARTHRITIS, UNSPECIFIED 11/03/2019 JOLLY, SHONNA Margi COMMUNITY OUTREACH SPECIALIST Ot M54.9 DORSALGIA, UNSPECIFIED 11/03/2019 JOLLY, SHONNA Margi COMMUNITY OUTREACH SPECIALIST Ot R29.6 REPEATED FALLS 11/03/2019 JOLLY, SHONNA Margi COMMUNITY OUTREACH SPECIALIST Ot Z13.820 ENCOUNTER FOR SCREENING FOR OSTEOPOROSIS 11/11/2019 JOLLY, SHONNA Kiser COMMUNITY OUTREACH SPECIALIST Ot M19.90 UNSPECIFIED OSTEOARTHRITIS, UNSPECIFIED 11/11/2019 JOLLY, SHONNA Margi COMMUNITY OUTREACH SPECIALIST Ot M54.9 DORSALGIA, UNSPECIFIED 11/11/2019 JOLLY, SHONNA Margi COMMUNITY OUTREACH SPECIALIST Ot R29.6 REPEATED FALLS 11/11/2019 JOLLY, SHONNA K COMMUNITY OUTREACH SPECIALIST Ot Z13.820 ENCOUNTER FOR SCREENING FOR OSTEOPOROSIS 02/07/2020 JOLLY, SHONNA Kiser COMMUNITY OUTREACH SPECIALIST Ot M19.90 UNSPECIFIED OSTEOARTHRITIS, UNSPECIFIED 02/07/2020 JOLLY, SHONNA Margi COMMUNITY OUTREACH SPECIALIST Ot M54.9 DORSALGIA, UNSPECIFIED 02/07/2020 JOLLY, SHONNA Magri COMMUNITY OUTREACH SPECIALIST Ot R29.6 REPEATED FALLS 02/07/2020 JOLLY, SHONNA Margi COMMUNITY OUTREACH SPECIALIST Ot Z13.820 ENCOUNTER FOR SCREENING FOR OSTEOPOROSIS 02/07/2020 JOLLY, SHONNA Margi COMMUNITY OUTREACH SPECIALIST Ot Z78.0 ASYMPTOMATIC MENOPAUSAL STATE Procedures There is no data. Results Test Result Range TSH w/ FREE T4 - 03/24/19 14:15 TSH 4.61 mIU/L 0.40-4.50 T4, FREE 1.2 ng/dL 0.8-1.8 CMP - 03/24/19 14:15 GLUCOSE 159 mg/dL 65-139 UREA NITROGEN (BUN) 24 mg/dL 7-25 CREATININE 0.97 mg/dL 0.60-0.93 eGFR NON-AFR. CROATIAN 57 mL/min/1.73m2 > OR = 60 eGFR 66 mL/min/1.73m2 > OR = 60 BUN/CREATININE RATIO 25 (calc) 6-22 SODIUM 142 mmol/L 135-146 POTASSIUM 4.3 mmol/L 3.5-5.3 CHLORIDE 106 mmol/L 98-110 CARBON DIOXIDE 31 mmol/L 20-32 CALCIUM 9.7 mg/dL 8.6-10.4 PROTEIN, TOTAL 6.4 g/dL 6.1-8.1 ALBUMIN 4.2 g/dL 3.6-5.1 GLOBULIN 2.2 g/dL (calc) 1.9-3.7 ALBUMIN/GLOBULIN RATIO 1.9 (calc) 1.0-2. 5 BILIRUBIN, TOTAL 0.4 mg/dL 0.2-1.2 ALKALINE PHOSPHATASE 66 U/L 33-130 AST 30 U/L 10-35 ALT 27 U/L 6-29 Complete urinalysis with reflex to cultu re - 06/16/19 11:30 Urine color determination DARK YELLOW N RG Urine clarity determination SL CLOUDY N RG Urine pH measurement by test strip 5.5 5-9 Specific gravity of urine by test strip >= 1.016-1.022 Urine protein assay by test strip, semi-quantitative 1+ NEGATIVE Urine glucose detection by automated test strip NE GATIVE NEGATIVE Erythrocytes detection in urine sediment by light micr oscopy NEGATIVE NEGATIVE Urine ketones detection by automated test strip NE GATIVE NEGATIVE Urine nitrite detection by test strip NEGATIVE NEGATIVE Urine total bilirubin detection by test strip 1+ NEGATIVE Urine urobilinogen measurement by automated test strip (mass/volume) 0.2 mg/dL NORMAL Urine leukocyte esterase detection by dipstick NEG ATIVE NEGATIVE Automated urine sediment erythrocyte cou nt by microscopy (number/high power field) NONE NRG Automated urine sediment leukocyte count by microscopy (number/high power field) [HPF] NRG Bacteria detection in urine sediment by light microsco py FEW NRG Squamous epithelial cells detection in u rine sediment by light microscopy 25-50 NRG Crystals detection in urine sediment by light microsco py PRESENT NRG Casts detection in urine sediment by light microscopy PRESENT NRG Mucus detection in urine sediment by light microscopy LARGE NRG Complete urinalysis with reflex to culture YES NRG Amorphous sediment detection in urine sediment by ligh t microscopy FEW PHILLIP URATES NRG Hyaline casts detection in urine sediment by light juan carlos roscopy >50 NRG Calcium oxalate crystals detection in ur ine sediment by light microscopy MODERATE NRG PT panel in platelet poor plasma by coag ulation assay - 06/16/19 11:30 Prothrombin time (PT) in platelet poor plasma by coagu lation assay 13.1 s 12.2-14.7 INR in platelet poor plasma or blood by coagulation as say 1.0 0.8-1.4 Bacterial urine culture - 06/16/19 11:30 Bacterial urine culture GRAM POS M NRG COLONY COUNT 50,000 CFU/ML NRG FTX;REPORTABLE SEE COMMENTS NRG Methicillin resistant Staphylococcus aur eus (MRSA) screening culture - 06/16/19 11:30 MRSA SCREEN RESULT MRSA ISOLATED NRG Blood CBC with ordered manual differenti al panel - 10/27/19 12:25 Blood leukocytes automated count (number/volume) 5.6 10*3/uL 4.3-11.0 Blood erythrocytes automated count (number/volume) 5.11 10*6/uL 4.35-5.85 Venous blood hemoglobin measurement (mass/volume) 15.1 g/dL 11.5-16.0 Blood hematocrit (volume fraction) 46 % 35-52 Automated erythrocyte mean corpuscular volume 90 [ foz_us] 80-99 Automated erythrocyte mean corpuscular h emoglobin (mass per erythrocyte) 30 pg 25-34 Automated erythrocyte mean corpuscular h emoglobin concentration measurement (mass/volume) 33 g/dL 32-36 Automated erythrocyte distribution width ratio 14. 6 % 10.0- 14.5 Automated blood platelet count (count/volume) 203 10*3/uL 130-400 Automated blood platelet mean volume measurement 10.7 [foz_us] 7.4-10.4 Automated blood neutrophils/100 leukocytes 65 % 42-75 Automated blood lymphocytes/100 leukocytes 25 % 12-44 Blood monocytes/100 leukocytes 6 % NRG Automated blood eosinophils/100 leukocytes 3 % 0-10 Automated blood basophils/100 leukocytes 1 % 0-10 Blood neutrophils automated count (number/volume) 3.6 10*3 1.8-7.8 Blood lymphocytes automated count (number/volume) 1.4 10*3 1.0-4.0 Blood monocytes automated count (number/volume) 0. 4 10*3 0.0-1.0 Automated eosinophil count 0.1 10*3/uL 0 .0-0.3 Automated blood basophil count (count/volume) 0.0 10*3/uL 0.0-0.1 Manual blood segmented neutrophils/100 leukocytes 68 % NRG Blood band neutrophils/100 leukocytes 1 % NRG Manual blood lymphocytes/100 leukocytes 23 % NRG Manual eosinophils/100 leukocytes in nose 1 % NRG Manual blood basophils/100 leukocytes 1 % NRG PT panel in platelet poor plasma by coag ulation assay - 10/27/19 12:25 Prothrombin time (PT) in platelet poor plasma by coagu lation assay 12.5 s 12.2-14.7 INR in platelet poor plasma or blood by coagulation as say 0.9 0.8-1.4 Activated partial thromboplastin time (a PTT) in platelet poor plasma bycoagulation assay - 10/27/19 12:25 Activated partial thromboplastin time (a PTT) in platelet poor plasma bycoagulation assay 21 s 24-35 Comprehensive metabolic panel - 10/27/19 12:25 Serum or plasma sodium measurement (moles/volume) 141 mmol/L 135-145 Serum or plasma potassium measurement (moles/volume) 3.7 mmol/L 3.6-5.0 Serum or plasma chloride measurement (moles/volume) 100 mmol/L 98-107 Carbon dioxide 26 mmol/L 21-32 Serum or plasma anion gap determination (moles/volume) 15 mmol/L 5-14 Serum or plasma urea nitrogen measurement (mass/volume ) 12 mg/dL 7-18 Serum or plasma creatinine measurement (mass/volume) 0.90 mg/dL 0.60-1.30 Serum or plasma urea nitrogen/creatinine mass ratio 13 NRG Serum or plasma creatinine measurement w ith calculation of estimated glomerular filtration rate > NRG Serum or plasma glucose measurement (mass/volume) 152 mg/dL 70-105 Serum or plasma calcium measurement (mass/volume) 9.6 mg/dL 8.5-10.1 Serum or plasma total bilirubin measurement (mass/volu me) 0.6 mg/dL 0.1-1.0 Serum or plasma alkaline phosphatase tatiana surement (enzymatic activity/volume) 95 U/L 40-136 Serum or plasma aspartate aminotransfera se measurement (enzymatic activity/volume) 33 U/L 5-34 Serum or plasma alanine aminotransferase measurement (enzymatic activity/volume) 23 U/L 0-55 Serum or plasma protein measurement (mass/volume) 6.6 g/dL 6.4-8.2 Serum or plasma albumin measurement (mass/volume) 4.1 g/dL 3.2-4.5 CALCIUM CORRECTED 9.5 mg/dL 8.5-10.1 TROPONIN I FS - 10/27/19 12:25 TROPONIN I FS < 0.30 <0.30 PROBNP FS - 10/27/19 12:25 PROBNP FS 392.6 pg/mL <75.0 Complete urinalysis with reflex to cultu re - 10/27/19 13:10 Urine color determination PALE YELLOW N RG Urine clarity determination CLEAR NR G Urine pH measurement by test strip 7.5 5-9 Specific gravity of urine by test strip 1.020 1.016-1.022 Urine protein assay by test strip, semi-quantitative NEGATIVE NEGATIVE Urine glucose detection by automated test strip NE GATIVE NEGATIVE Erythrocytes detection in urine sediment by light micr oscopy NEGATIVE NEGATIVE Urine ketones detection by automated test strip NE GATIVE NEGATIVE Urine nitrite detection by test strip NEGATIVE NEGATIVE Urine total bilirubin detection by test strip NEGA TIVE NEGATIVE Urine urobilinogen measurement by automated test strip (mass/volume) 0.2 mg/dL < = 1.0 Urine leukocyte esterase detection by dipstick NEG ATIVE NEGATIVE Automated urine sediment erythrocyte cou nt by microscopy (number/high power field) NONE NRG Automated urine sediment leukocyte count by microscopy (number/high power field) [HPF] NRG Bacteria detection in urine sediment by light microsco py FEW NRG Squamous epithelial cells detection in u rine sediment by light microscopy 2-5 NRG Crystals detection in urine sediment by light microsco py PRESENT NRG Casts detection in urine sediment by light microscopy PRESENT NRG Mucus detection in urine sediment by light microscopy SMALL NRG Complete urinalysis with reflex to culture NO NRG Amorphous sediment detection in urine sediment by ligh t microscopy FEW PHILLIP PHOSPHATE NRG Hyaline casts detection in urine sediment by light juan carlos roscopy 0-2 NRG Thyroid Stimulating Hormone - 10/28/19 0 5:20 TSH 3.97 mIU/mL 0.32-5.00 MAGNESIUM SERUM - 10/31/19 14:24 MAGNESIUM 2.2 mg/dL 1.5-2.5 TSH w/ FREE T4 - 04/29/20 09:24 TSH 3.72 mIU/L 0.40-4.50 T4, FREE 1.3 ng/dL 0.8-1.8 LIPID PANEL - 02/08/20 09:24 CHOLESTEROL, TOTAL 180 mg/dL <200 HDL CHOLESTEROL 58 mg/dL > OR = 50 TRIGLYCERIDES 136 mg/dL <150 LDL-CHOLESTEROL 99 mg/dL (calc) NRG CHOL/HDLC RATIO 3.1 (calc) <5.0 NON HDL CHOLESTEROL 122 mg/dL (calc) <13 0 CMP - 02/08/20 09:24 GLUCOSE 138 mg/dL 65-99 UREA NITROGEN (BUN) 15 mg/dL 7-25 CREATININE 1.08 mg/dL 0.60-0.93 eGFR NON-AFR. CROATIAN 49 mL/min/1.73m2 > OR = 60 eGFR 57 mL/min/1.73m2 > OR = 60 BUN/CREATININE RATIO 14 (calc) 6-22 SODIUM 140 mmol/L 135-146 POTASSIUM 4.3 mmol/L 3.5-5.3 CHLORIDE 106 mmol/L 98-110 CARBON DIOXIDE 26 mmol/L 20-32 CALCIUM 9.0 mg/dL 8.6-10.4 PROTEIN, TOTAL 5.9 g/dL 6.1-8.1 ALBUMIN 4.0 g/dL 3.6-5.1 GLOBULIN 1.9 g/dL (calc) 1.9-3.7 ALBUMIN/GLOBULIN RATIO 2.1 (calc) 1.0-2. 5 BILIRUBIN, TOTAL 0.6 mg/dL 0.2-1.2 ALKALINE PHOSPHATASE 86 U/L 37-153 AST 23 U/L 10-35 ALT 20 U/L 6-29 VITAMIN D, 25-H - 02/08/20 09:24 VITAMIN D,25-OH,TOTAL,IA 36 ng/mL 30-10 0 A1C - 02/08/20 09:24 HEMOGLOBIN A1c 6.8 % of total Hgb <5.7 INSULIN LEVEL - 02/08/20 09:24 INSULIN 10.3 uIU/mL NRG Complete blood count (CBC) with automate d white blood cell (WBC) differential - 04/23/20 12:32 Blood leukocytes automated count (number/volume) 8.3 10*3/uL 4.3-11.0 Blood erythrocytes automated count (number/volume) 5.00 10*6/uL 4.35-5.85 Venous blood hemoglobin measurement (mass/volume) 14.7 g/dL 11.5-16.0 Blood hematocrit (volume fraction) 45 % 35-52 Automated erythrocyte mean corpuscular volume 89 [ foz_us] 80-99 Automated erythrocyte mean corpuscular h emoglobin (mass per erythrocyte) 29 pg 25-34 Automated erythrocyte mean corpuscular h emoglobin concentration measurement (mass/volume) 33 g/dL 32-36 Automated erythrocyte distribution width ratio 13. 6 % 10.0- 14.5 Automated blood platelet count (count/volume) 247 10*3/uL 130-400 Automated blood platelet mean volume measurement 10.0 [foz_us] 7.4-10.4 Automated blood neutrophils/100 leukocytes 66 % 42-75 Automated blood lymphocytes/100 leukocytes 24 % 12-44 Blood monocytes/100 leukocytes 7 % 0-12 Automated blood eosinophils/100 leukocytes 2 % 0-10 Automated blood basophils/100 leukocytes 0 % 0-10 Blood neutrophils automated count (number/volume) 5.5 10*3 1.8-7.8 Blood lymphocytes automated count (number/volume) 2.0 10*3 1.0-4.0 Blood monocytes automated count (number/volume) 0. 5 10*3 0.0-1.0 Automated eosinophil count 0.2 10*3/uL 0 .0-0.3 Automated blood basophil count (count/volume) 0.0 10*3/uL 0.0-0.1 Comprehensive metabolic panel - 04/23/20 12:32 Serum or plasma sodium measurement (moles/volume) 139 mmol/L 135-145 Serum or plasma potassium measurement (moles/volume) 3.6 mmol/L 3.6-5.0 Serum or plasma chloride measurement (moles/volume) 100 mmol/L 98-107 Carbon dioxide 24 mmol/L 21-32 Serum or plasma anion gap determination (moles/volume) 15 mmol/L 5-14 Serum or plasma urea nitrogen measurement (mass/volume ) 19 mg/dL 7-18 Serum or plasma creatinine measurement (mass/volume) 0.96 mg/dL 0.60-1.30 Serum or plasma urea nitrogen/creatinine mass ratio 20 NRG Serum or plasma creatinine measurement w ith calculation of estimated glomerular filtration rate 56 NRG Serum or plasma glucose measurement (mass/volume) 132 mg/dL 70-105 Serum or plasma calcium measurement (mass/volume) 9.1 mg/dL 8.5-10.1 Serum or plasma total bilirubin measurement (mass/volu me) 0.6 mg/dL 0.1-1.0 Serum or plasma alkaline phosphatase tatiana surement (enzymatic activity/volume) 106 U/L 40-136 Serum or plasma aspartate aminotransfera se measurement (enzymatic activity/volume) 27 U/L 5-34 Serum or plasma alanine aminotransferase measurement (enzymatic activity/volume) 18 U/L 0-55 Serum or plasma protein measurement (mass/volume) 6.5 g/dL 6.4-8.2 Serum or plasma albumin measurement (mass/volume) 4.1 g/dL 3.2-4.5 CALCIUM CORRECTED 9.0 mg/dL 8.5-10.1 TROPONIN I FS - 04/23/20 12:32 TROPONIN I FS < 0.30 <0.30 PROBNP FS - 04/23/20 12:32 PROBNP FS 542.2 pg/mL <75.0 Fibrin D-dimer FEU measurement in platel et poor plasma (mass/volume) - 04/23/20 12:32 Fibrin D-dimer FEU measurement in platelet poor plasma (mass/volume) 1.79 ug/mL 0.00-0.49 Encounters ACCT No. Visit Date/Time Discharge Status Pt. Type Provider Facility Loc./Unit Complaint [id number] 10/27/2019 15:49:00 10/28/2019 12:50 :00 DIS Outpatient [facility] MED-SURG [id number] 10/27/2019 16:27:19 Document Registration [id number] 11/01/2019 09:49:00 020 23:59:59 CLS Outpatient SHONNA AZEVEDO APRN [facility] RAD OSTEOPOROSIS [id number] 10/27/2019 12:05:00 020 16:25:00 DIS Emergency CELIO COHEN MD [facility] ER FS SYNCOPE [id number] 08/09/2019 13:48:00 23:59:59 CLS Preadmit SHONNA AZEVEDO APRN [facility] RAD OSTEOPOROSIS M81.0 [id number] 08/04/2019 11:24:00 23:59:59 CLS Outpatient SHONNA AZEVEDO COMMUNITY OUTREACH SPECIALIST [facility] RAD FS R07.81 M54.9 R2 9.6 [id number] 06/16/2019 10:47:00 23:59:59 CLS Outpatient TAD SINCLAIR, BON Joseph [facility] RAD FS R53.83 [id number] 04/26/2020 08:00:00 P EN Preadmit CHUN NATARAJAN MD [facility] RAD LOW BACK PAIN [id number] 04/23/2020 12:39:00 Document Registration [id number] 03/21/2020 08:45:00 03/21/2020 23:59: 59 CLS Outpatient CHUN NATARAJAN [facility] [id number] 02/08/2020 09:00:00 Document Registration [id number] 10/31/2019 13:00:00 Document Registration [id number] 03/24/2019 14:00:00 Document Registration [id number] 03/23/2014 12:24:34 03/23/2014 23:59: 59 CLS Outpatient Sonny Guerra
--- OUTSIDE RECORDS SUMMARY | 2020-04-23 13:40 | XMS REPORT ---
Author Author Gerda NATARAJAN [facility] MAIN Address [address] [place] [address] Care Team Providers Care S[employer] Name Role Phone CHUN NATARAJAN Unavailable PROBLEMS Type Condition ICD9-CM Code [id number] Code Onset Dates Condition S tatus SNOMED Code Problem Osteoarthritis of both knees M17.0 A ctive [id number] Problem Essential (primary) hypertension I10 Active 31049342 Problem Situational depression F43.21 Active 03853244 Problem Peptic ulcer disease K27.9 Active 70186365 Problem Tubular adenoma of colon D12.6 Activ e 668483018 Problem Alzheimer''s disease with late onset G30.1 Active 25882745 Problem Hypothyroidism (acquired) E03.9 Acti ve 34357116 Problem 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.80 Active 068172559 Problem Vitamin D deficiency E55.9 Active 16479558 Problem DDD (degenerative disc disease), cervical M50.30 Active 454324791 Problem Spinal stenosis M48.00 Active 7610 7001 Problem Memory loss R41.3 Active 05889931 Problem Obesity E66.9 Active 810713887 ALLERGIES Substance Reaction Event Type Date Status Requip weakness Drug Allergy Dec, Active ENCOUNTERS Encounter Location Date Diagnosis [address] [address] Jul, [address] [address] Mar, [address] [address] 14 Mar, 2019 Hypothyroidism (acquired) E03.9 and Esse ntial (primary) hypertension I10 [address] [address] 13 Mar, 2019 Alzheimer''s disease with late onset G30 .1 ; Dementia in other diseases classified elsewhere without behavioral disturbance F02.80 and Hypothyroidism (acquired) E03.[address] [address] Jan, [address] [address] Dec, Essential (primary) hypertension I10 ; O besity E66.9 ; Situational depression F43.21 ; Memory loss R41.3 ; Spinal stenosis M48.00 ; Osteoarthritis of both knees M17.0 ; DDD (degenerative disc disease), cervical M50.30 ; Hypothyroidism (acquired) E03.9 ; Tubular adenoma of colon D12.6 ; Peptic ulcer disease K27.9 ; Vitamin D deficiency E55.9 and Morbid obesity E66.[address] [address] Nov, [facility] [address] [facility] [id number] [address] [place] [phone] Oct, [facility] [address] [id number] [address] [place] [id number] Sep, [facility] [address] [facility] [id number] [address] [place] [phone] Aug, [facility] [address] [facility] [id number] [address] [place] [phone] Jul, [facility] [address] [facility] [id number] [address] [place] [phone] Dec, IMMUNIZATIONS No Known Immunizations SOCIAL HISTORY Never Assessed REASON FOR VISIT [facility] PLAN OF CARE Activity Details Follow Up 3 Months Reason:lab and fu C VITAL SIGNS Height 5'3.5" in 2018-12-21 Weight 233 lbs 2018-12-21 BMI 40.62 kg/m2 2018-12-21 Blood pressure systolic 152 mmHg 2018-12-21 Blood pressure diastolic 80 mmHg 2018-12-21 MEDICATIONS Medication Instructions Dosage Frequency Start Date End Date Duration S tatus Vitamin D2 2000 UNIT Orally Once a day 1 tablet 24h 30 day(s) Active Levothyroxine Sodium 25 MCG Orally Once a day 1 tablet on an empty stomach in the morning 24h 30 day(s) Active Aspirin Adult Low Dose 81 MG Orally Once a day 1 tablet 24h 30 day(s) Active Zocor 20 MG Orally Once a day 1 tablet in the evening 24h 30 day(s) Active Vitamin D (Ergocalciferol) 70236 UNIT Orally once weekly 1 capsule 30 day(s) Active Amlodipine Besylate 5 MG Orally Once a day 1 tablet 24h 30 day(s) Active RESULTS No Results PROCEDURES Procedure Date Ordered Result Body Site [facility] VISIT ESTABLISHED PATIENT December 21, 2018 INSTRUCTIONS MEDICATIONS ADMINISTERED No Known Medications MEDICAL (GENERAL) HISTORY Type Description Date Medical History Obesity Medical History Essential (primary) hypertension Medical History Situational depression Medical History Memory loss Medical History Spinal stenosis Medical History Osteoarthritis of both knees Medical History DDD (degenerative disc disease), cervica l Medical History Hypothyroidism (acquired) Medical History Tubular adenoma of colon Medical History Peptic ulcer disease Surgical History colonoscopy Surgical History carpal tunnel release Surgical History cystocele repair Surgical History lumbar fusion Surgical History hysterectomy Surgical History tonsillectomy and adenoidectomy Surgical History EGD
--- NOTE | 2020-04-23 13:51 | Diagnostic Imaging Report ---
Indication: Chest pain Portable chest 1:32 PM Heart size and pulmonary vascularity are normal. Lungs are clear. There are no effusions or pneumothoraces. IMPRESSION: Negative chest Dictated by: Dictated on workstation # [id number]
--- NOTE | 2020-04-23 13:54 | Diagnostic Imaging Report ---
INDICATION: Left knee pain post fall TECHNIQUE: 3 views of the left knee CORRELATION STUDY: None FINDINGS: Mild joint space narrowing is noted slightly greater medially compared to laterally. Marginal osteophyte formation noted medially. There is no acute bony abnormality. The articular surfaces are smooth. No calcified intraarticular loose body. Minimal narrowing at the patellofemoral compartment with minimal spur like formation a superior pole of patella. Soft tissues are unremarkable. IMPRESSION: 1. Negative for acute bony abnormality of the knee. Multipart degenerative changes left knee. Dictated by: Dictated on workstation # [id number]
[2020-04-23] MEDS ORDERED: LORazepam INJ 2 MG/ML (ATIVAN) VIAL IVP ONE ×2 (14:00→14:15)
[2020-04-23] MEDS ORDERED: NS 100 ML (IVPB) BAG IV ONE (14:15)
[2020-04-23] MEDS ORDERED: CATHETER FLUSH 10 ML SYR IV PRN (14:15)
[2020-04-23] MEDS ORDERED: HOLD METFORMIN - RECEIVED CONTRAST 20 ML VIAL IV SCH (14:15)
[2020-04-23] MEDS ORDERED: IOHEXOL 350 MG/ML 150 ML (OMNIPAQUE 350) VIAL IV ONE (14:15)
--- NOTE | 2020-04-23 14:45 | Diagnostic Imaging Report ---
PROCEDURE: CT angiography of the chest with contrast. TECHNIQUE: Multiple contiguous axial images were obtained through the chest after uneventful bolus administration of intravenous contrast. 3D reconstructed CTA MIP acquisitions were also performed. Auto Exposure Controls were utilized during the CT exam to meet ALARA standards for radiation dose reduction. INDICATION: Chest pain. No prior studies are available for comparison. Evaluation of pulmonary arterial system is without thromboembolism. No definite filling defects are seen within central, lobar or segmental branches. The thoracic aorta is normal caliber. No dissection is identified. There is a small pericardial effusion. No pleural effusion is identified. Parenchymal evaluation does show some minimal atelectasis or scarring superior segment right lower lobe. No infiltrate or mass is detected. There is minimal subsegmental atelectasis lingula and left lower lobe. Upper abdomen demonstrates a small low-density right lobe liver near the dome, too small to characterize but most likely a small cyst. Bony structures appear nonacute. IMPRESSION: No evidence of pulmonary embolism or thoracic aortic dissection. Small pericardial effusion. Dictated by: Dictated on workstation # [id number]
--- NOTE | 2020-04-23 14:49 | Diagnostic Imaging Report ---
INDICATION: Left leg injury from a fall AP and lateral views of the left femur show no fracture or dislocation. IMPRESSION: Negative left femur. Dictated by: Dictated on workstation # [id number]
--- NOTE | 2020-04-23 14:49 | Diagnostic Imaging Report ---
PROCEDURE: CT left lower extremity without contrast. TECHNIQUE: Multiple contiguous axial images were obtained through the left lower extremity without the use of intravenous contrast. Sagittal and coronal reformations were then performed. Auto Exposure Controls were utilized during the CT exam to meet ALARA standards for radiation dose reduction. INDICATION: Fall and left knee pain. COMPARISON: Comparison is made with left knee radiograph from earlier the same day. FINDINGS: There is trace joint fluid present as well as a very small Sorto's cyst. Tricompartmental degenerative changes noted with joint space narrowing and marginal spurring, greatest involving the medial compartment. No fractures are identified. There is no dislocation. IMPRESSION: Tricompartmental degenerative change and small joint effusion. No acute bony abnormality is detected. Dictated by: Dictated on workstation # [id number]
--- NOTE | 2020-04-23 14:50 | Diagnostic Imaging Report ---
INDICATION: Fall. COMPARISON: None FINDINGS: Multiple radiographic views of the left tibia and fibula were obtained. Tibiotalar joint space is suboptimally evaluated on the frontal view secondary to positioning. Otherwise, there is no evidence acute fracture or dislocation. Osseous structures are intact. No unexpected radiopaque foreign bodies are seen. IMPRESSION: 1. Suboptimal evaluation of left ankle joint, but otherwise no evidence of acute fracture or dislocation of left tibia or fibula. Dictated by: Dictated on workstation # [id number]
[2020-04-23] MEDS ORDERED: KETOROLAC 30 MG/ML VIAL IVP ONE (15:00)
[2020-04-23 15:10] LABS: CLARITY,URINE CLEAR; COLOR,URINE YELLOW; PH,URINE 8.5 (5-9); PROTEIN,URINE NEGATIVE (NEGATIVE)
[2020-04-23 15:11] LABS: BACTERIA,URINE NEGATIVE /HPF; BILIRUBIN,URINE NEGATIVE (NEGATIVE); GLUCOSE, URINE (UA) NEGATIVE (NEGATIVE); KETONES,URINE NEGATIVE (NEGATIVE); LEUKOCYTE ESTERASE ,URINE NEGATIVE (NEGATIVE); NITRITE,URINE NEGATIVE (NEGATIVE); SQUAMOUS EPITHELIAL CELL,UR 0-2 /HPF
[2020-04-23] MEDS ORDERED: HYDR-4227 PO (15:57)
[2020-04-23] MEDS ORDERED: TMSL.4C PO (15:57)
[2020-04-23] MEDS ORDERED: PROC-1 PO (15:57)
[2020-04-23 17:20] VITALS: BP 124/68
== END 2020-04-23 17:37 | disposition home or self-care (01) ==
LOC: EDUNIT# 12:15 → ER FS 12:16
DX: S83.92XA Sprain of unspecified site of left knee, initial encounter (principal); R07.2 Precordial pain; E11.40 Type 2 diabetes mellitus with diabetic neuropathy, unspecified; E11.51 Type 2 diabetes mellitus with diabetic peripheral angiopathy without gangrene; M54.9 Dorsalgia, unspecified; G89.29 Other chronic pain; F32.9 Major depressive disorder, single episode, unspecified; Z85.038 Personal history of other malignant neoplasm of large intestine; Z90.710 Acquired absence of both cervix and uterus; Z88.8 Allergy status to other drugs, medicaments and biological substances; W01.0XXA Fall on same level from slipping, tripping and stumbling without subsequent striking against object, initial encounter
CPT/HCPCS: 36415; 71045; 71275; 73552; 73562; 73590; 73700; 80053; 81000; 83880; 84484; 85025; 85379; 93005

== ENCOUNTER → 2020-04-26 | Outpatient (CLI) | payer MEDICARE, OTHER ==
[~2020-04-26] MED LIST: HYDR-4227 PO; PROC-1 PO; TMSL.4C PO
--- NOTE | 2020-04-26 09:43 | Diagnostic Imaging Report ---
PROCEDURE: MRI lumbar spine without contrast. TECHNIQUE: Multiplanar, multisequence MRI of the lumbar spine was performed without contrast. INDICATION: Fall. Low back pain. COMPARISON: Lumbar spine on 08/04/2019. FINDINGS: 5 lumbar type vertebral bodies are visualized with the last well-formed disc space designated L5-S1. No acute fracture or dislocation is seen in the lumbar spine. There is grade 1 anterolisthesis of L4 on L5. Laminectomy has been performed at L4-L5. Vertebral body heights are well-maintained. The bone marrow signal is normal. The conus terminates at the L1 level. No masses are seen associated with the conus or nerve roots of the cauda equina. No epidural collections are identified. Multilevel degenerative changes are seen in the lumbar spine with disc bulges, facet hypertrophy, and buckling of the ligamentum flavum. T12-L1: Disc desiccation with broad-based disc bulge and facet hypertrophy results in no significant spinal canal narrowing and no significant foraminal narrowing. L1-L2: Disc desiccation, facet hypertrophy, and buckling of ligamentum flavum results in no significant spinal canal narrowing and moderate bilateral foraminal stenosis. L2-L3: Disc desiccation with broad-based disc bulge, facet hypertrophy, and buckling of ligamentum flavum results in no significant spinal canal narrowing and [id number] right and moderate left foraminal stenosis. L3-L4: Disc desiccation with broad-based disc bulge, facet hypertrophy, and buckling of ligamentum flavum result in moderate spinal canal stenosis and moderate bilateral foraminal stenosis. L4-L5: Broad-based disc bulge with central protrusion and annular fissure, facet hypertrophy, and buckling of the ligamentum flavum results in no significant spinal canal narrowing and moderate left and moderate to severe right foraminal stenosis. L5-S1: Broad-based disc bulge, facet hypertrophy, and buckling of the ligamentum flavum results in no significant spinal canal narrowing and moderate bilateral foraminal stenosis. Paravertebral soft tissues are unremarkable. Bilateral simple appearing renal cysts are seen. IMPRESSION: 1. No acute fracture or dislocation in the lumbar spine. 2. Grade 1 anterolisthesis of L4 on L5. Laminectomy has been performed at L4-L5. 3. Multilevel degenerative changes in the lumbar spine, greatest at L3-L4, L4-L5, and L5-S1. Dictated by: Dictated on workstation # [id number]
== END ==
LOC: RAD 07:50
PROVIDERS: ATTEND Family Medicine
DX: M43.16 Spondylolisthesis, lumbar region (principal); M47.817 Spondylosis without myelopathy or radiculopathy, lumbosacral region; Z98.890 Other specified postprocedural states; W19.XXXA Unspecified fall, initial encounter
CPT/HCPCS: 72148

== ENCOUNTER 2021-02-22 11:52 | Emergency (ER) | payer MEDICARE, OTHER ==
[~2021-02-22] VITALS: Ht 165 cm; Wt 99.7 kg
[2021-02-22 12:10] LABS: HEMATOCRIT 42 % (35-52); HEMOGLOBIN 13.8 G/DL (11.5-16.0); LYMPHOCYTES % (AUTO) 28 % (12-44); MEAN CORPUSCULAR HEMOGLOBIN 30 PG (25-34); MEAN CORPUSCULAR HGB CONC 33 G/DL (32-36); MEAN CORPUSCULAR VOLUME 90 FL (80-99); MEAN PLATELET VOLUME 10.2 FL (7.4-10.4); MONOCYTES % (AUTO) 9 % (0-12); NEUTROPHILS % (AUTO) 58 % (42-75); PLATELET COUNT 220 10^3/uL (130-400); WHITE BLOOD COUNT 5.1 10^3/uL (4.3-11.0)
[2021-02-22 12:11] LABS: BASOPHILS % (AUTO) 1 % (0-10); EOSINOPHILS # (AUTO) 0.2 10^3/uL (0.0-0.3); EOSINOPHILS % (AUTO) 5 % (0-10); LYMPHOCYTES # (AUTO) 1.4 X 10^3 (1.0-4.0); MONOCYTES # (AUTO) 0.4 X 10^3 (0.0-1.0)
[2021-02-22 12:28] LABS: CARBON DIOXIDE 25 MMOL/L (21-32); CHLORIDE 105 MMOL/L (98-107); SODIUM 141 MMOL/L (135-145)
[2021-02-22 12:29] LABS: ALANINE AMINOTRANSFERASE 20 U/L (0-55); ALBUMIN 3.5 GM/DL (3.2-4.5); ALKALINE PHOSPHATASE 113 U/L (40-136); BILIRUBIN,TOTAL 0.6 MG/DL (0.1-1.0); BUN/CREATININE RATIO 14; CALCIUM 8.9 MG/DL (8.5-10.1); CREATININE SERUM 0.94 MG/DL (0.60-1.30); GFR ESTIMATED 58; GLUCOSE 161 MG/DL (70-105); TOTAL PROTEIN 8.5 GM/DL (6.4-8.2)
--- NOTE | 2021-02-22 12:52 | Diagnostic Imaging Report ---
EXAMINATION: Chest radiograph, portable AP view. DATE: 02/22/2021 12:27 PM INDICATION: 80-year-old female, chest pain. COMPARISON: April 23, 2020. FINDINGS: Heart size and mediastinal contours are unchanged. There is no identified pneumothorax. There is no large pleural effusion. There are mild streaky opacities in the left lung base. The right lung appears grossly clear. IMPRESSION: 1. Mild streaky opacities in the left lung base which may relate to atelectasis and/or infiltrate. Dictated by: Dictated on workstation # [id number]
[2021-02-22] MEDS ORDERED: LORazepam INJ 2 MG/ML (ATIVAN) VIAL IVP ONE (13:15)
--- NOTE | 2021-02-22 14:54 | ED Chest Pain ---
General Chief Complaint: Chest Pain Stated Complaint: CHEST PAIN Nursing Triage Note: Patient reports sudden onset of chest pain approximately 1 hour prior to arrival to ED. Patient received 4 mg IV morphine and 4 aspirin from EMS prior to arrival. Nursing Sepsis Screen: No Definite Risk Source: patient, family Exam Limitations: no limitations History of Present Illness Date Seen by Provider: February 22, 2021 Time Seen by Provider: 12:00 Initial Comments Patient is 80-year-old female presents with nasal congestion rhinorrhea, cough, postnasal drip and sudden onset chest pain shortness of breath while sitting up in her recliner. Symptoms woke patient from sleep. On EMS arrival, the patient was clutching her chest complaining of difficulty breathing. She is alert and oriented x3. Prehospital EKG was obtained and revealed normal sinus rhythm without acute ST-T wave changes. Patient did report dizziness accompanied by hyperventilation syndrome per EMS. Patient denies recent illnesses. She denies fever, nausea vomiting or sweats. Denies shortness of breath currently. No chest pain currently. No leg pain or swelling. Denies exertional chest pain. Patient does have history anxiety and nonspecific chest wall pain. She has been evaluated in the emergency department for multiple times in the past. Timing/Duration: 1-3 hours Severity/Quality: mild Location: other Radiation: other Activities at Onset: other Prior CP/Workup: other Modifying Factors: improves with other Associated Symptoms: dizziness, nausea/vomiting, shortness of breath Allergies and Home Medications Allergies Coded Allergies: ropinirole (Verified Adverse Reaction, Unknown, Weakness, 10/27/19) Home Medications Hydrocodone/Acetaminophen 1 Each Tablet, 1 TAB PO Q4H Prescribed by: MARK ALSTON on 04/23/201556 Prochlorperazine Maleate 10 Mg Tablet, 10 MG PO Q12H Prescribed by: MARK ALSTON on 04/23/201556 Tamsulosin HCl 0.4 Mg Cap, 0.4 MG PO DAILY Prescribed by: MARK ALSTON on 04/23/201556 Patient Home Medication List Home Medication List Reviewed: Yes Review of Systems Review of Systems Constitutional: see HPI EENTM: See HPI Respiratory: See HPI Cardiovascular: See HPI Gastrointestinal: See HPI Genitourinary: See HPI Musculoskeletal: see HPI Skin: see HPI Psychiatric/Neurological: See HPI Endocrine: See HPI Hematologic/Lymphatic: See HPI All Other Systems Reviewed Negative Unless Noted: Yes Past Emkjful-Zddnci-Ouqmdv Hx Past Med/Social Hx: Reviewed Nursing Past Med/Soc Hx Patient Social History Alcohol Use: Denies Use Smoking Status: Never a Smoker 2nd Hand Smoke Exposure: No Recent Infectious Disease Expo: No Recent Hopitalizations: No Seasonal Allergies Seasonal Allergies: No Past Medical History Surgeries: Yes (RT ULNAR NERVE OF ELBOW, CARPAL TUNNEL RIGHT, BACK SX, CYSTOCELE, ) Adenoidectomy, Hysterectomy, Orthopedic, Tonsillectomy Respiratory: No Cardiac: Yes Hypertension, Irregular Heartbeat, Peripheral Vascular Neurological: Yes Neuropathy 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 oz. kg; 36.00 BMI Method: General Appearance: No Apparent Distress, Anxious HEENT: PERRL/EOMI, TMs Normal, Pharynx Normal, Other (Nasal congestion rhinorrhea.) Neck: Non Tender, Supple Respiratory: Chest Non Tender, Lungs Clear, Normal Breath Sounds Cardiovascular: Regular Rate, Rhythm Gastrointestinal: Non Tender, Soft Extremity: Normal Inspection, Non Tender, No Calf Tenderness Neurologic/Psychiatric: Alert, Oriented x3, No Motor/Sensory Deficits, development representative II- XII Norm as Tested Skin: Warm/Dry Focused Exam Sepsis Stage: Ruled Out Progress/Results/Core Measures Results/Orders Lab Results Laboratory Tests Test 02/22/21 12:00 02/22/21 14:00 Range/Units White Blood Count 5.1 4.3-11.0 10^3/uL Red Blood Count 4.60 4.35-5.85 10^6/uL Hemoglobin 13.8 11.5-16.0 G/DL Hematocrit 42 35-52 % Mean Corpuscular Volume 90 80-99 FL Mean Corpuscular Hemoglobin 30 25-34 PG Mean Corpuscular Hemoglobin Concent 33 32-36 G/DL Red Cell Distribution Width 14.2 10.0-14.5 % Platelet Count 220 130-400 10^3/uL Mean Platelet Volume 10.2 7.4-10.4 FL Immature Granulocyte % (Auto) 0 % Neutrophils (%) (Auto) 58 42-75 % Lymphocytes (%) (Auto) 28 12-44 % Monocytes (%) (Auto) 9 0-12 % Eosinophils (%) (Auto) 5 0-10 % Basophils (%) (Auto) 1 0-10 % Neutrophils # (Auto) 3.0 1.8-7.8 X 10^3 Lymphocytes # (Auto) 1.4 1.0-4.0 X 10^3 Monocytes # (Auto) 0.4 0.0-1.0 X 10^3 Eosinophils # (Auto) 0.2 0.0-0.3 10^3/uL Basophils # (Auto) 0.0 0.0-0.1 10^3/uL Immature Granulocyte # (Auto) 0.0 0.0-0.1 10^3/uL Percent Immature Platelet Fraction 2.7 0.0-7.6 % Sodium Level 141 135-145 MMOL/L Potassium Level 4.0 3.6-5.0 MMOL/L Chloride Level 105 98-107 MMOL/L Carbon Dioxide Level 25 21-32 MMOL/L Anion Gap 11 5-14 MMOL/L Blood Urea Nitrogen 13 7-18 MG/DL Creatinine 0.94 0.60-1.30 MG/DL Estimat Glomerular Filtration Rate 58 BUN/Creatinine Ratio 14 Glucose Level 161 H 70-105 MG/DL Calcium Level 8.9 8.5-10.1 MG/DL Corrected Calcium 9.3 8.5-10.1 MG/DL Total Bilirubin 0.6 0.1-1.0 MG/DL Aspartate Amino Transf (AST/SGOT) 26 5-34 U/L Alanine Aminotransferase (ALT/SGPT) 20 0-55 U/L Alkaline Phosphatase 113 40-136 U/L Troponin I < 0.30 < 0.30 <0.30 NG/ML Total Protein 8.5 H 6.4-8.2 GM/DL Albumin 3.5 3.2-4.5 GM/DL My Orders Orders - MARK ALSTON DO Cbc With Automated Diff (02/22/21 12:02) Comprehensive Metabolic Panel (02/22/21 12:02) Troponin I Fs (02/22/21 12:02) Chest 1 View Ap/Pa Only (02/22/21 12:02) Ekg Tracing (02/22/21 12:27) Lorazepam Injection (Ativan Injection) (02/22/21 13:15) Troponin I Fs (02/22/21 13:40) Medications Given in ED Current Medications Medications Dose Ordered Sig/Silvia Route Start Time Stop Time Status Last Admin Dose Admin Lorazepam 1 mg ONCE ONCE IVP 02/22/21 13:15 02/22/21 13:16 DC 02/22/21 14:14 1 MG Vital Signs/I&O 02/22/21 02/22/21 11:57 12:04 Temp 36.6 Pulse 69 Resp 14 B/P (MAP) 155/81 (105) Pulse Ox 98 O2 Delivery Room Air Room Air Blood Pressure Mean: 105 Departure Communication (Admissions) EKG 02/22/2021, 1154: Sinus rhythm, rate 67, NJ 163, QRS 86, QTc 443. Patient with observed anxiety state presenting chest pain and shortness of breath. Likely triggers include sinus congestion postnasal drip while sleeping which subsequently wakes her triggering panic episode. Patient had a witnessed episode in the emergency department of similar. EKG repeat troponin are negative. Patient resting comfortably at time of discharge. Recommendations for outpatient nasal steroids decongestants and PCP follow-up. Return precautions reviewed. Patient verbalizes understanding agreement discharge instructions prior to departure. Impression Primary Impression: Chest pain Additional Impression: Anxiety state Disposition: 01 HOME, SELF-CARE Condition: Stable (q) Departure-Patient Inst. Decision time for Depature: 14:55 Referrals: CHUN NATARAJAN MD (PCP/Family) Primary Care Physician Patient Instructions: Chest Pain, Adult ED Add. Discharge Instructions: Your evaluated for chest pain in the emergency department. EKG lab and imaging studies were performed and are nondiagnostic. The exact cause of your symptoms has not been determined but are not felt to be low risk for coronary artery disease. Please continue current medications and use [id number] nasal steroid for nasal congestion and breathing. Follow-up with your PCP in 3 days for reevaluation. In the meantime if you develop new or worsening symptoms, return to the emergency department. MARK ALSTON DO February 22, 2021 14:54
[2021-02-22 15:35] VITALS: BP 146/60
== END 2021-02-22 16:50 | disposition home or self-care (01) ==
LOC: EDUNIT# 11:52 → ER FS 11:52
DX: R07.9 Chest pain, unspecified (principal); F41.9 Anxiety disorder, unspecified; G89.29 Other chronic pain; M54.9 Dorsalgia, unspecified; I10 Essential (primary) hypertension; E11.9 Type 2 diabetes mellitus without complications; Z88.8 Allergy status to other drugs, medicaments and biological substances; Z79.891 Long term (current) use of opiate analgesic
CPT/HCPCS: 36415; 71045; 80053; 84484; 85025; 93005

== ENCOUNTER → 2021-03-08 | Outpatient (CLI) | payer MEDICARE, OTHER ==
--- NOTE | 2021-03-08 17:00 | Diagnostic Imaging Report ---
PROCEDURE: MR imaging of the brain without contrast. TECHNIQUE: Multiplanar, multisequence MR imaging of the brain was performed without contrast. INDICATION: Blurry vision. Intractable headache. Difficulty walking. COMPARISON: CT head without contrast 10/27/2019. FINDINGS: Moderate generalized cerebral and cerebellar parenchymal volume loss. Moderate nonspecific T2 hyperintensities in the supratentorial white matter. No restricted water diffusion. No hemosiderin deposition or evidence of intracranial hemorrhage. Normal morphology including the major midline structures, sella, posterior fossa and cerebellar pontine angle. Postoperative changes in the globes. Normal intracranial flow voids. No hydrocephalus or extra-axial fluid collection. Left mastoid effusion. The paranasal sinuses are clear. Normal bone marrow signal. IMPRESSION: 1. Age-appropriate parenchymal volume loss and chronic small vessel ischemic change. 2. No MRI findings of infarction or intracranial hemorrhage. 3. Nonspecific left mastoid effusion is new since the comparison. Dictated by: Dictated on workstation # [id number]
== END ==
LOC: RAD 16:15
PROVIDERS: ATTEND Family Medicine
DX: G31.1 Senile degeneration of brain, not elsewhere classified (principal); I67.82 Cerebral ischemia
CPT/HCPCS: 70551

== ENCOUNTER → 2021-04-30 | Outpatient (CLI) | payer MEDICARE, OTHER ==
--- NOTE | 2021-04-30 12:11 | Diagnostic Imaging Report ---
Indication: Bilateral knee pain, arthritis, fall 2 months ago. Findings: 3 view bilateral knee is performed. Lateral view suggests small bilateral suprapatellar knee joint effusions. There is tricompartmental osteoarthritis bilaterally left somewhat greater than right with the tibiofemoral disease greater medial than lateral. Some spurring off the superior inferior patellar poles appearing relatively symmetric. No fracture or opaque loose body. Impression: Osteoarthritis and probable small joint effusions, the degenerative osteoarthritic changes with no fracture or acute bony pathology. Dictated by: Dictated on workstation # [id number]
== END ==
LOC: RAD FS 10:10
PROVIDERS: ATTEND Family Medicine
DX: M17.0 Bilateral primary osteoarthritis of knee (principal)

== ENCOUNTER 2021-09-03 13:23 | Emergency (ER) | payer MEDICARE, OTHER ==
[~2021-09-03] VITALS: Ht 162 cm; Wt 108.0 kg
--- OUTSIDE RECORDS SUMMARY | 2021-09-03 13:28 | XMS REPORT | Clinical Summary ---
Author Author [facility] Organization [facility] Address Unknown Phone Unavailable Care Team Providers Care Medical Billing Assistant Name Role Phone Self, Luisito SINCLAIR PCP Allergies Comments Active Allergy Reactions Severity Noted Date Pioglitazone 09/19/2016 Medications End Date Status Medication Sig Dispensed Refills Start Date Active simvastatin (ZOCOR) 20 MG Take 20 mg by 0 tablet mouth daily. Active metformin (GLUCOPHAGE) Take 1,000 mg 0 1000 mg tablet by mouth 2 (two) times a day with meals. Active levothyroxine (SYNTHROID, Take 50 mcg 0 LEVOTHROID) 50 MCG tablet by mouth daily. Active aspirin 81 MG EC tablet Take 81 mg by 0 mouth daily. Active amLODIPine (NORVASC) 5 MG Take 1 tablet 30 tablet 2 tabletIndications: (5 mg total) 6 hypertension by mouth daily. Active fluticasone (FLONASE) 50 Use 2 sprays 15.8 mL 1 mcg/actuation nasal in each 6 sprayIndications: nostril allergic rhinitis daily. Active folic acid (FOLVITE) 1 MG Take 1 tablet 30 tablet 1 tablet (1 mg total) 6 by mouth daily. Active loratadine (CLARITIN) 10 Take 1 tablet 90 tablet 1 mg tabletIndications: (10 mg total) 6 allergic rhinitis by mouth daily. Active nortriptyline (PAMELOR) Take 1 30 capsule 1 25 MG capsule capsule (25 6 mg total) by mouth nightly. Active cyanocobalamin, vitamin Take 1 tablet 30 tablet 1 B-12, 1,000 mcg (1,000 mcg 6 TbERIndications: total) by prevention of vitamin B12 mouth daily. deficiency Active Problems Problem Noted Date Panic attacks 09/23/2016 Depression 09/23/2016 Unresolved grief 09/23/2016 Type 2 diabetes mellitus without complication 2015 Intractable episodic tension-type headache 6 Elevated BP without diagnosis of hypertension 2015 Paresthesia 09/20/2016 Weakness of both lower extremities 09/20/2016 Altered awareness, transient 09/19/2016 Transient loss of consciousness 09/19/2016 Social History Date Tobacco Use Types Packs/Day Years Used Never Smoker Comments Alcohol Use Standard Drinks/Week "once in a while" Yes 0 (1 standard drink = 0.6 o z pure alcohol) Alcohol Habits Answer Date Recorded How often do you have a drink containing alcohol? No t asked How many drinks containing alcohol do you have on No t asked a typical day when you are drinking? How often do you have six or more drinks on one Not asked occasion? 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 Weight 160 cm (5' 3") 09/22/2016 11:20 AM 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 Height 37.2 09/22/2016 11:20 AM 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 Body Mass Index Plan of Treatment Health Maintenance Due Date Last Done Comments Td/Tdap# 1940 Zoster Vaccine# (1 of 2) 1992 Fall Risk Assessment # 2007 Osteoporosis Screening 2007 Pneumococcal Vaccine: 65+ 2007 Years (1 of 1 - PPSV23) Influenza Vaccine (#1) 2021 Results Not on filefrom Last 3 Months Insurance Type Payer Benefit Subscriber ID Effective Phone Address Plan / Dates Group Medicare MEDICARE MEDICARE [id number] 2007-P [phone] W[employer] G[employer] PART A B resent ATTN CLAIMS DEPT [address] [place] [address] COMMERCIAL-NONCONTRACTED MISC [id number] 2015-P [address] [id number] [place] [id number] Gerda Valdivia Personal/F Self 1940 [address] amily (Home) [place], [place] [address] Advance Directives For more information, please contact: [phone] 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
[2021-09-03] MEDS ORDERED: TETANUS,DIPTH,PERTUSS P/F (BOOSTRIX) 0.5 ML VIAL IM ONE (13:45)
[2021-09-03] MEDS ORDERED: NS IV 1000 ML 1,000 ML IV SCH (13:45)
[2021-09-03 13:59] LABS: BASOPHILS % (AUTO) 1 % (0-10); EOSINOPHILS % (AUTO) 8 % (0-10); HEMATOCRIT 45 % (35-52); HEMOGLOBIN 14.8 g/dL (11.5-16.0); INR 0.9 (0.8-1.4); LYMPHOCYTES # (AUTO) 1.4 X 10^3 (1.0-4.0); LYMPHOCYTES % (AUTO) 25 % (12-44); MEAN CORPUSCULAR HEMOGLOBIN 30 pg (25-34); MEAN CORPUSCULAR HGB CONC 33 g/dL (32-36); MEAN CORPUSCULAR VOLUME 90 fL (80-99); MEAN PLATELET VOLUME 10.4 fL (9.0-12.2); MONOCYTES # (AUTO) 0.5 X 10^3 (0.0-1.0); MONOCYTES % (AUTO) 8 % (0-12); NEUTROPHILS # (AUTO) 3.4 X 10^3 (1.8-7.8); NEUTROPHILS % (AUTO) 59 % (42-75); PLATELET COUNT 235 10^3/uL (130-400); PROTHROMBIN TIME PATIENT 12.3 SEC (12.2-14.7); WHITE BLOOD COUNT 5.8 10^3/uL (4.3-11.0)
[2021-09-03 14:00] LABS: EOSINOPHILS # (AUTO) 0.5 10^3/uL (0.0-0.3)
[2021-09-03 14:14] LABS: ABG BASE EXCESS 5.1 MMOL/L (-2.5-2.5); ABG OXYGEN SATURATION 96 % (94-100); ABG PCO2 31 MMHG (35-45); ABG PH 7.55 (7.37-7.43); ABG PO2 68 MMHG (79-93); ABG TCO2 28.1 MMOL/L (21.0-31.0)
[2021-09-03 14:15] LABS: ALLENS TEST YES-POS; INSPIRED O2 ROOM AIR; VENTILATOR NO
[2021-09-03 14:16] LABS: PATIENT TEMP 36.4
[2021-09-03 14:23] LABS: BILIRUBIN,URINE NEGATIVE (NEGATIVE); CLARITY,URINE SL CLOUDY; COLOR,URINE YELLOW; GLUCOSE, URINE (UA) NEGATIVE (NEGATIVE); KETONES,URINE NEGATIVE (NEGATIVE); LEUKOCYTE ESTERASE ,URINE NEGATIVE (NEGATIVE); NITRITE,URINE NEGATIVE (NEGATIVE); PROTEIN,URINE NEGATIVE (NEGATIVE)
[2021-09-03 14:28] LABS: POTASSIUM 3.4 MMOL/L (3.6-5.0); SODIUM 139 MMOL/L (135-145)
[2021-09-03 14:29] LABS: ALANINE AMINOTRANSFERASE 13 U/L (0-55); ALKALINE PHOSPHATASE 95 U/L (40-136); BILIRUBIN,TOTAL 0.5 MG/DL (0.1-1.0); BUN/CREATININE RATIO 12; CALCIUM 9.2 MG/DL (8.5-10.1); CARBON DIOXIDE 26 MMOL/L (21-32); CHLORIDE 101 MMOL/L (98-107); CREATININE SERUM 0.83 MG/DL (0.60-1.30); GFR ESTIMATED 66; GLUCOSE 113 MG/DL (70-105); TOTAL PROTEIN 6.8 GM/DL (6.4-8.2)
[2021-09-03 14:30] LABS: LIPASE 20 U/L (8-78)
[2021-09-03 14:40] LABS: AMORPHOUS SEDIMENT,UR FEW AMOR PHOSPHATE /LPF; BACTERIA,URINE MODERATE /HPF; WBC,URINE RARE /HPF
[2021-09-03 14:42] LABS: AMPHETAMINE SCREEN, URINE NEGATIVE (NEGATIVE); BARBITURATE SCREEN URINE NEGATIVE (NEGATIVE); BENZODIAZEPINES SCREEN URINE NEGATIVE (NEGATIVE); CANNABINOID SCREEN, URINE NEGATIVE (NEGATIVE); COCAINE SCREEN URINE NEGATIVE (NEGATIVE); METHADONE STAT NEGATIVE (NEGATIVE); METHAMPHETAMINE SCREEN URINE S NEGATIVE (NEGATIVE); OPIATE SCREEN URINE NEGATIVE (NEGATIVE); OXYCODONE STAT NEGATIVE (NEGATIVE); PROPOXYPHENE STAT NEGATIVE (NEGATIVE); TRICYCLIC ANTIDEPRESSANTS SCRE NEGATIVE (NEGATIVE)
--- NOTE | 2021-09-03 15:05 | ED General ---
General Chief Complaint: Head/Cervical Problems Stated Complaint: FALL; HEAD INJ Nursing Triage Note: PT FELL LAST THURSDAY AND HIT HER FOREHEAD ON A PICNIC TABLE. HER DAUGHTER REPORTS TODAY AND UNSTEADY GAIT AND PT HAS ALTERED MENTAL STATUS. History of Present Illness Date Seen by Provider: Sep 03, 2021 Time Seen by Provider: 15:00 Initial Comments Patient presenting to the emergency department for evaluation of confusion and multiple areas of pain status post mechanical fall on Thursday which is now 4 days ago. She reportedly just received a cat and she has never taken care of her cat before in her life they were trying to give the cat away and the cat slipped out of a pillowcase as she was bending forward and then she fell forward striking her head on a picnic table. Patient had a bloody nose and appeared to be quite bruised at the time but she refused to be seen in the emergency department. Patient reportedly was doing okay the next day as she went out to eat but starting this morning she has had confusion weakness inability to ambulate or keep her eyes open. Patient is unsure on her tetanus. She has a headache neck pain back pain chest pain and feels dizzy. She says she can see but she does not want to open her eyes. She appears uncomfortable but is nontoxic. She denies taking any blood thinners on a regular basis. Allergies and Home Medications Allergies Coded Allergies: ropinirole (Verified Adverse Reaction, Unknown, Weakness, 10/27/19) Patient Home Medication List Home Medication List Reviewed: Yes Hydrocodone/Acetaminophen ([place] 7.5-325 Tablet) 1 Each Tablet, 1 TAB PO Q4H Prescribed by: MARK ALSTON on 04/23/201556 Prochlorperazine Maleate (Compazine) 10 Mg Tablet, 10 MG PO Q12H Prescribed by: MARK ALSTON on 04/23/201556 Tamsulosin HCl (Flomax) 0.4 Mg Cap, 0.4 MG PO DAILY Prescribed by: MARK ALSTON on 04/23/201556 Review of Systems Review of Systems Constitutional: dizziness, malaise, weakness EENTM: epistaxis Respiratory: no symptoms reported Cardiovascular: chest pain Gastrointestinal: no symptoms reported Musculoskeletal: back pain, neck pain Skin: other (Abrasions) Psychiatric/Neurological: Headache All Other Systems Reviewed Negative Unless Noted: Yes Past Davdlpo-Lwpyaj-Cskxbn Hx Patient Social History Tobacco Use?: No Use of E-Cig and/or Vaping dev: No Substance use?: No Alcohol Use?: No Pt feels they are or have been: No Seasonal Allergies Seasonal Allergies: No Past Medical History Surgeries: Yes (RT ULNAR NERVE OF ELBOW, CARPAL TUNNEL RIGHT, BACK SX, CYSTOCELE, ) Adenoidectomy, Hysterectomy, Orthopedic, Tonsillectomy Respiratory: No Cardiac: Yes Hypertension, Irregular Heartbeat, Peripheral Vascular 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 oz. kg; 41.00 BMI Method: General Appearance: No Apparent Distress Eyes: Bilateral Eye PERRL, Bilateral Eye EOMI HEENT: PERRL/EOMI, TMs Normal, Other (Dried clot in right nare at nasal turbinate) Neck: Supple, Tender Midline Respiratory: Lungs Clear, No Respiratory Distress Cardiovascular: Regular Rate, Rhythm, Normal Peripheral Pulses Gastrointestinal: Non Tender, Soft Back: No Vertebral Tenderness Extremity: Normal Capillary Refill Neurologic/Psychiatric: Alert, Disoriented Skin: Warm/Dry, Other (Multiple abrasions and contusions especially on the face) Progress/Results/Core Measures Suspected Sepsis SIRS Temperature: Pulse: 89 Respiratory Rate: 16 Laboratory Tests 09/03/21 13:33: White Blood Count 5.8 Blood Pressure 157 /88 Mean: 111 Laboratory Tests 09/03/21 13:33: Creatinine 0.83, INR Comment 0.9, Platelet Count 235, Total Bilirubin 0.5 Results/Orders Lab Results Laboratory Tests Test 09/03/21 13:33 09/03/21 14:07 Range/Units White Blood Count 5.8 4.3-11.0 10^3/uL Red Blood Count 4.98 3.80-5.11 10^6/uL Hemoglobin 14.8 11.5-16.0 g/dL Hematocrit 45 35-52 % Mean Corpuscular Volume 90 80-99 fL Mean Corpuscular Hemoglobin 30 25-34 pg Mean Corpuscular Hemoglobin Concent 33 32-36 g/dL Red Cell Distribution Width 13.3 10.0-14.5 % Platelet Count 235 130-400 10^3/uL Mean Platelet Volume 10.4 9.0-12.2 fL Immature Granulocyte % (Auto) 0 % Neutrophils (%) (Auto) 59 42-75 % Lymphocytes (%) (Auto) 25 12-44 % Monocytes (%) (Auto) 8 0-12 % Eosinophils (%) (Auto) 8 0-10 % Basophils (%) (Auto) 1 0-10 % Neutrophils # (Auto) 3.4 1.8-7.8 X 10^3 Lymphocytes # (Auto) 1.4 1.0-4.0 X 10^3 Monocytes # (Auto) 0.5 0.0-1.0 X 10^3 Eosinophils # (Auto) 0.5 H 0.0-0.3 10^3/uL Basophils # (Auto) 0.0 0.0-0.1 10^3/uL Immature Granulocyte # (Auto) 0.0 0.0-0.1 10^3/uL Prothrombin Time 12.3 12.2-14.7 SEC INR Comment 0.9 0.8-1.4 Activated Partial Thromboplast Time 27 24-35 SEC Sodium Level 139 135-145 MMOL/L Potassium Level 3.4 L 3.6-5.0 MMOL/L Chloride Level 101 98-107 MMOL/L Carbon Dioxide Level 26 21-32 MMOL/L Anion Gap 12 5-14 MMOL/L Blood Urea Nitrogen 10 7-18 MG/DL Creatinine 0.83 0.60-1.30 MG/DL Estimat Glomerular Filtration Rate 66 BUN/Creatinine Ratio 12 Glucose Level 113 H 70-105 MG/DL Calcium Level 9.2 8.5-10.1 MG/DL Corrected Calcium 9.2 8.5-10.1 MG/DL Total Bilirubin 0.5 0.1-1.0 MG/DL Aspartate Amino Transf (AST/SGOT) 19 5-34 U/L Alanine Aminotransferase (ALT/SGPT) 13 0-55 U/L Alkaline Phosphatase 95 40-136 U/L Troponin I < 0.30 <0.30 NG/ML Pro-B-Type Natriuretic Peptide 595.9 H <75.0 PG/ML Total Protein 6.8 6.4-8.2 GM/DL Albumin 4.0 3.2-4.5 GM/DL Lipase 20 8-78 U/L Serum Alcohol < 10 <10 MG/DL Urine Color YELLOW Urine Clarity SL CLOUDY Urine pH 7.0 5-9 Urine Specific [place] 1.020 1.016-1.022 Urine Protein NEGATIVE NEGATIVE Urine Glucose (UA) NEGATIVE NEGATIVE Urine Ketones NEGATIVE NEGATIVE Urine Nitrite NEGATIVE NEGATIVE Urine Bilirubin NEGATIVE NEGATIVE Urine Urobilinogen 0.2 < = 1.0 MG/DL Urine Leukocyte Esterase NEGATIVE NEGATIVE Urine RBC (Auto) TRACE-I H NEGATIVE Urine RBC NONE /HPF Urine WBC RARE /HPF Urine Squamous Epithelial Cells 2-5 /HPF Urine Crystals PRESENT H /LPF Urine Amorphous Sediment FEW PHILLIP PHOSPHATE H /LPF Urine Bacteria MODERATE H /HPF Urine Casts NONE /LPF Urine Mucus NEGATIVE /LPF Urine Culture Indicated YES Blood Gas Puncture Site RT. BRACHIAL Blood Gas Patient Temperature 36.4 Arterial Blood pH 7.55 H 7.37-7.43 Arterial Blood Partial Pressure CO2 31 L 35-45 MMHG Arterial Blood Partial Pressure O2 68 L 79-93 MMHG Arterial Blood HCO3 27 23-27 MMOL/L Arterial Blood Total CO2 28.1 21.0-31.0 MMOL/L Arterial Blood Oxygen Saturation 96 94-100 % Arterial Blood Base Excess 5.1 H -2.5-2.5 MMOL/L Ronaldo Test YES-POS Blood Gas Ventilator Setting NO Blood Gas Inspired Oxygen ROOM AIR Urine Opiates Screen NEGATIVE NEGATIVE Urine Oxycodone Screen NEGATIVE NEGATIVE Urine Methadone Screen NEGATIVE NEGATIVE Urine Propoxyphene Screen NEGATIVE NEGATIVE Urine Barbiturates Screen NEGATIVE NEGATIVE Ur Tricyclic Antidepressants Screen NEGATIVE NEGATIVE Urine Phencyclidine Screen NEGATIVE NEGATIVE Urine Amphetamines Screen NEGATIVE NEGATIVE Urine Methamphetamines Screen NEGATIVE NEGATIVE Urine Benzodiazepines Screen NEGATIVE NEGATIVE Urine Cocaine Screen NEGATIVE NEGATIVE Urine Cannabinoids Screen NEGATIVE NEGATIVE My Orders Orders - ERIC LOAIZA DO Iv/Invasive Line Insertion .IV start (09/03/21 13:45) Cbc With Automated Diff (09/03/21 13:45) Comprehensive Metabolic Panel (09/03/21 13:45) Alcohol (09/03/21 13:45) Arterial Blood Gas (09/03/21 13:45) Drug Screen Stat (Urine) (09/03/21 13:45) Ua Culture If Indicated (09/03/21 13:45) Troponin I Fs (09/03/21 13:45) Lipase (09/03/21 13:45) Partial Thromboplastin Time (09/03/21 13:45) Protime With Inr (09/03/21 13:45) Probnp Fs (09/03/21 13:45) Ekg Tracing (09/03/21 13:45) Ct Chest/Abdomen/Pelvis W (09/03/21 13:45) Ns Iv 1000 Ml (Sodium Chloride 0.9%) (09/03/21 13:45) Dipht,Pertuss(Acell),Tet Adult (Boostrix (09/03/21 13:45) Ct Head/Cervical Spine Wo (09/03/21 13:45) Urine Culture (09/03/21 14:07) Ct Maxillofacial Wo (09/03/21 15:00) Iohexol Injection (Omnipaque 350 Mg/Ml 1 (09/03/21 15:45) Received Contrast (Hold Metformin- Contr (09/03/21 15:45) Sodium Chloride Flush (Catheter Flush Sy (09/03/21 15:45) Ns (Ivpb) (Sodium Chloride 0.9% Ivpb Bag (09/03/21 15:45) Knee 3 View Right (09/03/21 15:44) Knee 3 View Left (09/03/21 15:55) Ketorolac Injection (Toradol Injection) (09/03/21 16:45) Hydrocodone/Apap 5/325 Tablet (Lortab 5 (09/03/21 16:45) Medications Given in ED Current Medications Medications Dose Ordered Sig/Silvia Route Start Time Stop Time Status Last Admin Dose Admin Acetaminophen/ Hydrocodone Bitart 1 ea ONCE ONCE PO 09/03/21 16:45 09/03/21 16:46 DC 09/03/21 16:51 1 EA Diphtheria/ Tetanus/Acell Pertussis 0.5 ml ONCE ONCE IM 09/03/21 13:45 09/03/21 13:48 DC 09/03/21 13:55 0.5 ML Iohexol 100 ml ONCE ONCE IV 09/03/21 15:45 09/03/21 15:46 DC 09/03/21 15:40 100 ML Ketorolac Tromethamine 15 mg ONCE ONCE IVP 09/03/21 16:45 09/03/21 16:46 DC 09/03/21 16:51 15 MG Sodium Chloride 10 ml NEEDED PRN IV 09/03/21 15:45 09/03/21 15:40 10 ML Sodium Chloride 100 ml ONCE ONCE IV 09/03/21 15:45 09/03/21 15:46 DC 09/03/21 15:40 80 ML Vital Signs/I&O 09/03/21 09/03/21 13:23 17:03 Temp 36.0 36.2 Pulse 89 80 Resp 16 16 B/P (MAP) 157/88 (111) 142/68 Pulse Ox 96 98 O2 Delivery Room Air Room Air Capillary Refill : Less Than 3 Seconds Blood Pressure Mean: 111 Progress Note : Progress Note Patient has abnormal exam and daughter says that she is usually alert and oriented the patient is now stating that she lives in [place] which is where she used to live and is quite altered per the daughter. Patient's labs and urinalysis are normal with no signs of acute pathology. Patient's imaging revealed no acute pathology as well. I discussed all incidental findings on labs and imaging and the need for follow-up. Patient does appear to improve on repeat examinations as she is now awake and oriented and interactive with her eyes open. I told patient and daughter that I suspect that she does have a concussion. Patient still does get dizzy when she sits up and has some difficulty ambulating. I discussed inpatient versus outpatient care and patient says she very much prefers to go home however I did not feel comfortable letting her live by herself but the daughter who is an EMT states th at she will stay with the patient and observe her and help her out at home until she gets back to her baseline. Patient will be discharged in stable condition told to follow with a primary care provider within 2 to 3 days for recheck and come back to emergency department sooner with worsening pain neurologic changes or other general concerns. Patient and daughter aware and agreeable with plan and verbalized understanding of the above instructions. Departure Impression Primary Impression: Concussion without loss of consciousness Qualified Codes: S06.0X0A - Concussion without loss of consciousness, initial encounter Additional Impressions: Injury of head and neck Qualified Codes: S09.90XA - Unspecified injury of head, initial encounter; S19.9XXA - Unspecified injury of neck, initial encounter Headache Qualified Codes: R51.9 - Headache, unspecified Neck sprain Qualified Codes: S13.9XXA - Sprain of joints and ligaments of unspecified parts of neck, initial encounter Knee sprain, bilateral Disposition: 01 HOME, SELF-CARE Condition: Stable Departure-Patient Inst. Referrals: SELF,CHUN SINCLAIR (PCP/Family) Primary Care Physician Patient Instructions: Concussion in Adults Add. Discharge Instructions: Take tylenol and ibuprofen for pain and the norco for breakthrough pain. Come back with any concerns. Thank you! All discharge instructions reviewed with patient and/or family. Voiced understanding. Scripts Hydrocodone/Acetaminophen (Hydrocodone-Acetamin 5-325 mg) 1 Each Tablet 1 TAB PO Q4H PRN for PAIN-MODERATE (5-7), #12 TAB Prov: ERIC LOAIZA DO 09/03/21 Ibuprofen (Ibuprofen) 600 Mg Tablet 600 MG PO Q6H PRN for PAIN-MILD, #20 TAB Prov: ERIC LOAIZA DO 09/03/21 Ondansetron (Ondansetron Odt) 4 Mg Tab.rapdis 4 MG PO Q6H PRN for NAUSEA/VOMITING, #12 TAB 0 Refills Prov: ERIC LOAIZA DO 09/03/21 ERIC LOAIZA DO Sep 03, 2021 15:05
[2021-09-03] MEDS ORDERED: HOLD METFORMIN - RECEIVED CONTRAST 20 ML VIAL IV SCH (15:45)
[2021-09-03] MEDS ORDERED: NS 100 ML (IVPB) BAG IV ONE (15:45)
[2021-09-03] MEDS ORDERED: IOHEXOL 350 MG/ML 100 ML (OMNIPAQUE 350) VIAL IV ONE (15:45)
[2021-09-03] MEDS ORDERED: CATHETER FLUSH 10 ML SYR IV PRN (15:45)
--- NOTE | 2021-09-03 16:04 | Diagnostic Imaging Report ---
CLINICAL INDICATION: Patient status post fall, with pain. EXAM: Head CT without IV contrast with sagittal and coronal reformations. Axial CT scan of the cervical spine with sagittal and coronal reformations. Auto Exposure Controls were utilized during the CT exam to meet ALARA standards for radiation dose reduction. COMPARISON: MRI of the brain without contrast dated 03/08/2021. Head CT without contrast dated 10/27/2019. FINDINGS: Head CT: There is no evidence of acute cerebral infarct, intracranial hemorrhage, or gross mass effect. There is a focal calcification along the anterior falx cerebri. The brain parenchymal volume appears appropriate for patient's age. Subtle patchy areas of low-attenuation changes are seen throughout both cerebral hemispheres and periventricular regions, likely representing mild chronic small vessel ischemic disease and leukoaraiosis. There is normal sung-white matter distinction. There is no significant midline shift or herniation. There is no evidence of hydrocephalus. The basal cisterns are unremarkable. The skull, extracranial soft tissue, and orbits are unremarkable. There is minimal mucosal thickening involving the ethmoid sinus. Temporal bones show no significant abnormality. Cervical Spine: There is no acute cervical spine fracture or dislocation. There is straightening of the cervical spine posture. There are multilevel vertebral body spurs and facet arthropathy. There is multilevel loss of disc space height which is moderate to severe throughout the cervical spine. There is roughly 16 mm low-density nodule involving the right thyroid lobe. Otherwise, there is no significant neck soft tissue abnormality. Visualized upper lung mcnulty are clear. IMPRESSION: 1: There is no evidence of acute intracranial process. There is no skull fracture. 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 3: There is a 16 mm low-density nodule involving the right thyroid lobe. Nonemergent thyroid ultrasound would better evaluate. Dictated by: Dictated on workstation # [id number]
--- NOTE | 2021-09-03 16:16 | Diagnostic Imaging Report ---
Indication: Right knee pain and swelling. COMPARISON:: 04/30/2021 3 views of the right knee demonstrate no fracture, dislocation or joint effusion. Stable moderate degenerative joint disease is present. There is no radial opaque foreign body. IMPRESSION: No fracture or dislocation. Dictated by: Dictated on workstation # [id number]
--- NOTE | 2021-09-03 16:19 | Diagnostic Imaging Report ---
PROCEDURE: CT maxillofacial without contrast. TECHNIQUE: Multiple contiguous axial images were obtained through the facial bones without the use of intravenous contrast. 3-D MIP images were obtained. Auto Exposure Controls were utilized during the CT exam to meet ALARA standards for radiation dose reduction. INDICATION: Facial trauma, pain and swelling. FINDINGS: The nasal septum is midline. The orbits are symmetric. Pterygoid plates, zygomatic arches and mandible are grossly unremarkable. The paranasal sinuses are clear. There are no air-fluid levels. No obvious soft tissue hematoma is identified. There is no radiopaque foreign body. IMPRESSION: No discernible facial fracture identified. Dictated by: Dictated on workstation # [id number]
--- NOTE | 2021-09-03 16:20 | Diagnostic Imaging Report ---
EXAMINATION: Left knee radiographs, 3 views. COMPARISON: April 23, 2020. HISTORY: 80-year-old female, left knee pain after a fall. FINDINGS: There are medial and patellofemoral compartment osteophytes. There is mild medial compartment joint space loss of the left knee. There is no knee joint effusion. There is no identified acute fracture. IMPRESSION: 1. Mild medial and patellofemoral compartment osteoarthritis of the left knee without knee joint effusion. 2. No identified acute fracture or other acute osseous abnormality. Dictated by: Dictated on workstation # [id number]
--- NOTE | 2021-09-03 16:34 | Diagnostic Imaging Report ---
PROCEDURE: CT chest, abdomen, and pelvis with contrast. TECHNIQUE: Multiple contiguous axial images were obtained through the chest, abdomen, and pelvis after the administration of intravenous contrast. Auto Exposure Controls were utilized during the CT exam to meet ALARA standards for radiation dose reduction. INDICATION: Pain, fall. COMPARISON: Chest CT compared to 04/23/2020. FINDINGS: CHEST: No lung contusion, pneumothorax, or hemothorax. Aorta is intact. No mediastinal or pericardial hemorrhage. No findings of aspiration. No chest wall fracture deformity. There are degenerative changes to the thoracic spine without its fracture or traumatic malalignment apparent. ABDOMEN AND PELVIS: There is no free fluid or evidence for hemoperitoneum. The liver and spleen are intact. Adrenals, pancreas, and unobstructed kidneys are nonacute. There are benign right renal cortical cysts. There is no mesenteric or bowel wall hematoma. No intra- or extra-peritoneal pelvic hemorrhage. The urinary bladder showed no traumatic deformity. There is no pneumatosis. There is no free air. There are degenerative changes throughout the spine, pelvis, and hips but no fracture or acute osseous injury. IMPRESSION: No acute post-traumatic sequelae identified at CT chest, abdomen, and pelvis. Dictated by: Dictated on workstation # [id number]
[2021-09-03] MEDS ORDERED: KETOROLAC 30 MG/ML VIAL IVP ONE (16:45)
[2021-09-03] MEDS ORDERED: HYDROcodone/APAP 5 MG/325 MG (LORTAB) TAB PO ONE (16:45)
[2021-09-03 17:03] VITALS: BP 142/68
[2021-09-03] MEDS ORDERED: IBUP-1773 PO (17:13)
[2021-09-03] MEDS ORDERED: ONDA4TAB11 PO (17:13)
[2021-09-03] MEDS ORDERED: ACHD5005 PO (17:13)
== END 2021-09-03 17:15 | disposition home or self-care (01) ==
LOC: EDUNIT# 13:23 → ER FS 13:25
DX: S06.0X0A Concussion without loss of consciousness, initial encounter (principal); S13.9XXA Sprain of joints and ligaments of unspecified parts of neck, initial encounter; S83.92XA Sprain of unspecified site of left knee, initial encounter; S83.91XA Sprain of unspecified site of right knee, initial encounter; I10 Essential (primary) hypertension; G89.29 Other chronic pain; M54.9 Dorsalgia, unspecified; E11.9 Type 2 diabetes mellitus without complications; Z23 Encounter for immunization; Z79.891 Long term (current) use of opiate analgesic; W22.8XXA Striking against or struck by other objects, initial encounter
CPT/HCPCS: 36415; 70450; 70486; 71260; 72125; 73562 ×2; 74177; 80053; 80306; 81000; 82805; 83690; 83880; 84484; 85025; 85610; 85730; 87088; 93005; 99285; G0480; 80320; 90715

== ENCOUNTER 2021-09-09 17:11 | Emergency (ER) | payer MEDICARE, OTHER ==
[~2021-09-09] VITALS: Ht 165 cm; Wt 63.6 kg
[~2021-09-09 17:11] MED LIST changes: +ACHD5005 PO; +IBUP-1773 PO; +ONDA4TAB11 PO
[2021-09-09] MEDS ORDERED: diphenhydrAMINE 50 MG/ML INJ (BENADRYL) IV ONE (17:30)
[2021-09-09] MEDS ORDERED: PROCHLORPERAZINE 10 MG/2ML INJ (COMPAZINE) IV ONE (17:30)
[2021-09-09] MEDS ORDERED: LACTATED RINGERS 1,000 ML IV SCH (17:30)
[2021-09-09] MEDS ORDERED: KETOROLAC 30 MG/ML VIAL IVP ONE (17:30)
--- NOTE | 2021-09-09 17:32 | ED Headache ---
General Chief Complaint: Head/Cervical Problems Stated Complaint: FELL,HEADACHE Source: patient, family, EMS Exam Limitations: no limitations History of Present Illness Date Seen by Provider: Sep 09, 2021 Time Seen by Provider: 17:18 Initial Comments 80-year-old female presenting to the ER via EMS from home due to headache. She fell about a week ago and came here. CT head/c spine/chest/abd pelv and knee XR's were normal. Diagnosed with concussion and discharged home. Headache has been constant and continued since then. Has been taking advil for the pain which is helping. Does not take any blood thinners. We contacted the daughter because the patient was seemingly a little bit confused, and she says that she h as been acting this way ever since the daughter was diagnosed with cancer, and has not been able to see the mother as often. The mother which is the patient has been wanting the daughter to move in with her, and the daughter is not wanting to at this time. The daughter is stating that she believes a lot of this is behavioral in nature but she is unsure. Allergies and Home Medications Allergies Coded Allergies: ropinirole (Verified Adverse Reaction, Unknown, Weakness, 10/27/19) Patient Home Medication List Home Medication List Reviewed: Yes Hydrocodone/Acetaminophen ([place] 7.5-325 Tablet) 1 Each Tablet, 1 TAB PO Q4H Prescribed by: MARK ALSTON on 04/23/201556 Hydrocodone/Acetaminophen (Hydrocodone-Acetamin 5-325 mg) 1 Each Tablet, 1 TAB PO Q4H PRN for PAIN-MODERATE (5-7) Prescribed by: ERIC LOAIZA on 09/03/211713 Ibuprofen (Ibuprofen) 600 Mg Tablet, 600 MG PO Q6H PRN for PAIN-MILD Prescribed by: ERIC LOAIZA on 09/03/211712 Ondansetron (Ondansetron Odt) 4 Mg Tab.rapdis, 4 MG PO Q6H PRN for NAUSEA/VOMITING Prescribed by: ERIC LOAIZA on 09/03/211712 Prochlorperazine Maleate (Compazine) 10 Mg Tablet, 10 MG PO Q12H Prescribed by: MARK ALSTON on 04/23/201556 Tamsulosin HCl (Flomax) 0.4 Mg Cap, 0.4 MG PO DAILY Prescribed by: MARK ALSTON on 04/23/201556 Review of Systems Review of Systems Constitutional: No chills, No fever Eyes: Denies Blurred Vision Ears, Nose, Mouth, Throat: no symptoms reported Respiratory: no symptoms reported Cardiovascular: no symptoms reported Gastrointestinal: no symptoms reported Genitourinary: no symptoms reported Musculoskeletal: no symptoms reported Skin: no symptoms reported Psychiatric/Neurological: Headache All Other Systems Reviewed Negative Unless Noted: Yes Past Kdxyayh-Kkjrop-Akbqac Hx Patient Social History Tobacco Use?: No Seasonal Allergies Seasonal Allergies: No Past Medical History Surgeries: Yes (RT ULNAR NERVE OF ELBOW, CARPAL TUNNEL RIGHT, BACK SX, CYSTOCELE, ) Adenoidectomy, Hysterectomy, Orthopedic, Tonsillectomy Respiratory: No Cardiac: Yes Hypertension, Irregular Heartbeat, Peripheral Vascular Neurological: Yes Neuropathy [employer] History: Hysterectomy Genitourinary: No Gastrointestinal: No Ulcer Musculoskeletal: Yes Degenerate Disk Disease, Arthritis, Chronic Back Pain Endocrine: Yes Hypothyroidsim, Diabetes, Non-Insulin dep HEENT: No Cancer: No Colon Psychosocial: Yes Depression Integumentary: No Blood Disorders: No Physical Exam Vital Signs Vital Signs - First Documented 09/09/21 17:35 Temp 36.2 Pulse 75 Resp 17 B/P (MAP) 170/85 (113) Pulse Ox 97 Capillary Refill : Height, Weight, BMI Height: '" Weight: lbs. oz. kg; 41.00 BMI Method: General Appearance: WD/WN, no apparent distress HEENT: PERRL/EOMI, normal ENT inspection, TMs normal, pharynx normal Neck: non-tender, full range of motion, supple, normal inspection Cardiovascular: regular rate, rhythm, no edema, no murmur Respiratory: chest non-tender, lungs clear, normal breath sounds, no respiratory distress, no accessory muscle use Gastrointestinal: normal bowel sounds, non tender, soft; No guarding Back: normal inspection, no CVA tenderness, no vertebral tenderness Extremities: normal range of motion, non-tender, normal inspection, no pedal edema, no calf tenderness, normal capillary refill Psychiatric: alert, oriented x 3 Crainal Nerves: normal hearing, normal speech, PERRL Coordination/Gait: normal finger to nose (Normal [id number]), normal gait Motor/Sensory: no motor deficit, no sensory deficit, no pronator drift Skin: normal color, warm/dry Lymphatic: no adenopathy Progress/Results/Core Measures Results/Orders My Orders Orders - ELIZABETH CALDERA MD Prochlorperazine Injection (Compazine In (09/09/21 17:30) Diphenhydramine Injection (Benadryl Inje (09/09/21 17:30) Lactated Ringers (Lr 1000 Ml Iv Solution (09/09/21 17:30) Ketorolac Injection (Toradol Injection) (09/09/21 17:30) Ct Head Wo (09/09/21 17:21) Iv/Invasive Line Insertion .IV start (09/09/21 18:42) Medications Given in ED Current Medications Medications Dose Ordered Sig/Silvia Route Start Time Stop Time Status Last Admin Dose Admin Diphenhydramine HCl 12.5 mg ONCE ONCE IV 09/09/21 17:30 09/09/21 17:31 DC 09/09/21 18:03 12.5 MG Ketorolac Tromethamine 15 mg ONCE ONCE IVP 09/09/21 17:30 09/09/21 17:31 DC 09/09/21 18:06 15 MG Prochlorperazine Edisylate 10 mg ONCE ONCE IV 09/09/21 17:30 09/09/21 17:31 DC 09/09/21 18:03 10 MG Vital Signs/I&O 09/09/21 09/09/21 17:35 18:06 Temp 36.2 36.2 Pulse 75 Resp 17 B/P (MAP) 170/85 (113) Pulse Ox 97 Progress Progress Note : Progress Note 72-year-old female with above history coming in due to headache. ABCs were intact and vitals were stable on presentation. Physical exam reassuring with an extensive neuro exam completely normal. Normal visual mcnulty and visual acuity on my exam. I reviewed her emergency department visit from roughly 1 week ago and the normal CTs and x-rays. Very low likelihood of delayed intracranial ble ed, but that is on the differential so a CT head was ordered by me. She was given a headache cocktail via IV as well while waiting for the CT head. This is likely a postconcussive syndrome headache. CT head negative for any acute findings. On reassessment after the headache cocktail and IV fluids the patient was doing much better. I believe she is stable for discharge with outpatient follow-up. She was sent home with strict return precautions Diagnostic Imaging Diagonstic Imaging: CT Plain Films/CT/US/NM/MRI: head Comments [facility]. [place], [place] NAME: JERMAINE BARRERA REC#: [id number] PT STATUS: REG ER : 1940 PHYSICIAN: ELIZABETH CALDERA MD ADMIT DATE: 09/09/21/ER FS Draft Date of Exam:09/09/21 CT HEAD WO INDICATION: History of fall with persistent headache. TECHNIQUE: Multiple contiguous axial images were obtained through the brain without the use of intravenous contrast. Auto Exposure Controls were utilized during the CT exam to meet ALARA standards for radiation dose reduction. Comparison made with 09/03/2021. There are diffuse atrophic changes. There are mild low-density changes in the deep white matter compatible with chronic ischemic change. There is no subdural or epidural hemorrhage. Ventricles are normal in size and position. Calvarial windows show no fracture. IMPRESSION: Chronic findings as above with no acute intracranial abnormality, no change from the prior study. Dictated on workstation # [id number] Dict: 09/09/21 1744 Trans: 09/09/21 1748 [facility] [id number] Interpreted by: JANUARY SALAS MD Electronically signed by: Departure Impression Primary Impression: Post-concussion headache Disposition: 01 HOME, SELF-CARE Condition: Improved Departure-Patient Inst. Decision time for Depature: 19:23 Referrals: SELFCHUN MD (PCP/Family) Primary Care Physician Patient Instructions: Headache, Adult ED Add. Discharge Instructions: You were seen in the emergency department for worsening headache as well as knee pain. CT of your head today is normal which is good. You likely have postconcu ssion syndrome with headache. Drink plenty of fluids, take Tylenol 1000 mg every 6-8 hours for headache. Please follow-up with your primary care doctor, you may need a referral to a neurologist if your symptoms continue to be bad, and there are other medications they could start you on. Your knee had nothing broken, but does have bad arthritis, this is likely why you are hurting. ELIZABETH CALDERA MD Sep 09, 2021 17:32
[2021-09-09 17:35] VITALS: BP 170/85
--- NOTE | 2021-09-09 17:48 | Diagnostic Imaging Report ---
INDICATION: History of fall with persistent headache. TECHNIQUE: Multiple contiguous axial images were obtained through the brain without the use of intravenous contrast. Auto Exposure Controls were utilized during the CT exam to meet ALARA standards for radiation dose reduction. Comparison made with 09/03/2021. There are diffuse atrophic changes. There are mild low-density changes in the deep white matter compatible with chronic ischemic change. There is no subdural or epidural hemorrhage. Ventricles are normal in size and position. Calvarial windows show no fracture. IMPRESSION: Chronic findings as above with no acute intracranial abnormality, no change from the prior study. Dictated by: Dictated on workstation # [id number]
== END 2021-09-09 19:30 | disposition home or self-care (01) ==
LOC: EDUNIT# 17:11 → ER FS 17:13
DX: G44.309 Post-traumatic headache, unspecified, not intractable (principal); I10 Essential (primary) hypertension; G89.29 Other chronic pain; M54.9 Dorsalgia, unspecified; E11.9 Type 2 diabetes mellitus without complications; Z79.891 Long term (current) use of opiate analgesic
CPT/HCPCS: 70450